=== PATIENT | female | born 1945 | race Caucasian/White ===

== ENCOUNTER 2016-05-04 10:23 | Inpatient (IN) ==
--- NOTE | 2016-05-04 10:33 | Emergency Department Note ---
Disposition Clinical Impression: Stroke Disposition: Admitted As Inpatient Condition: Fair General Adult HPI - General Chief complaint: ED Neuro Symptoms/Deficit Stated complaint: expressive aphasia Time Seen by Provider: 05/04/16 10:27 Nursing Notes Reviewed: Yes Vital Signs Reviewed: Yes - Related Data Home Medications Medication Instructions Recorded Confirmed Aspirin Enteric Coated [Aspirin EC] 81 mg PO DAILY 12/16/15 05/04/16 Atenolol 100 mg PO DAILY 12/16/15 05/04/16 Diltiazem HCl [Diltiazem ER] 120 mg PO DAILY 12/16/15 05/04/16 Ergocalciferol (VITAMIN D2) 50,000 unit PO QWEEK 12/16/15 05/04/16 [Vitamin D2 (50,000 UNIT)] Fluticasone Propionate Nasal 1 spray NS DAILY 12/16/15 05/04/16 [Flonase] Insulin Glargine,Hum.rec.anlog 25 unit SQ QAM 12/16/15 05/04/16 [Lantus Solostar] Insulin Glargine,Hum.rec.anlog 30 unit SQ QPM 12/16/15 05/04/16 [Lantus Solostar] Losartan Potassium [Cozaar] 100 mg PO DAILY 12/16/15 05/04/16 Pantoprazole Sodium [Protonix] 40 mg PO BID 12/16/15 05/04/16 Pravastatin Sodium [Pravachol] 40 mg PO DAILY 12/16/15 05/04/16 Ranitidine HCl [Heartburn Relief] 150 mg PO BID 12/16/15 05/04/16 Spironolactone [Aldactone] 25 mg PO DAILY 12/16/15 05/04/16 Sucralfate [Carafate] 1 gm PO QIDAC 12/16/15 05/04/16 HYDROcodone/Acet 5/325 mg [[place] 1 tab PO Q8H PRN 05/04/16 05/04/16 5-325 mg] Levothyroxine [Synthroid] 100 mcg PO DAILY 05/04/16 05/04/16 Allergies Allergy/AdvReac Type Severity Reaction Status Date / Time codeine Allergy Palpitation Verified 12/16/15 07:49 s Penicillins Allergy Rash Verified 12/16/15 07:49 Sulfa (Sulfonamide Allergy Anaphylaxis Verified 12/16/15 07:49 Antibiotics) Past Medical History - Past Medical History Medical history: Reports: diabetes, GERD, hypertension Surgical history: Reports: cholecystectomy, hysterectomy Psychiatric history: Reports: depression - Social History Smoking Status: Never smoker Alcohol use: Reports: none Drug use: Reports: none Course Vital Signs Temperature 97.6 F 05/04/16 10:25 Pulse Rate 66 05/04/16 10:25 Respiratory Rate 16 05/04/16 10:25 Blood Pressure 184/91 05/04/16 10:25 O2 Sat by Pulse Oximetry 95 05/04/16 10:25 Temperature 97.6 F 05/04/16 12:46 Pulse Rate 58 05/04/16 13:09 Respiratory Rate 18 05/04/16 13:09 Blood Pressure 129/84 05/04/16 13:09 O2 Sat by Pulse Oximetry 96 05/04/16 13:09 Oxygen Delivery Oxygen Delivery Room Air Medical Decision Making - MDM Narrative Medical decision making narrative: I examined this patient and my medical decision-making was reviewed with the [address] [employer] RO[address] DRIVER/PA/Advanced Practice Nurse/Resident Physician. I agree with the documented findings, disposition and treatment plan as described except to the extent set forth below. Value in this patient with Dr. Villela on arrival by EMS. Patient had a last known well 10 PM last evening, found on the floor around 0645. There went to the primary care physician and she has been having some weakness and difficulty speaking. She has expressive aphasia here some neglect of the right side lumbar drooping right side her face has some some difficulty following commands but does not have any overt weakness. A CT of her head check labs will speak to neurology. She is outside the window for TPA and a stroke alert. 1140: Labs are back. CT is back looks like she has got a nonacute infarct. Dr. rogers and then we will admit her through the hospitalist service here. Family is in agreement with plan. Patient to remain unchanged. Impression is acute aphasia with nonacute TIA versus CVA. Critical care time exclusive A separately billable procedures is 50 minutes. 1154 hrs.: Speaking with neurology at this time. I do not want to give her aspirin since she has the aphasia. And cannot be cleared from a swallowing standpoint. We will bring her into the hospital to neurology consulting. - Lab Data Result diagrams: 05/04/16 10:50 05/04/16 10:50 Lab Results 05/04/16 05/04/16 05/04/16 Range/Units 10:39 10:50 10:50 WBC 6.9 (4.3-11.1) K/mcL RBC 5.02 H (3.82-4.97) M/mcL Hgb 14.9 (11.5-15.4) g/dL Hct 46.7 H (35.3-44.9) % MCV 93.0 (83.0-100.0) fL MCH 29.7 (28.0-33.3) pg MCHC 31.9 (31.6-35.5) g/dL RDW 16.2 H (11.5-14.5) % Plt Count 286 (140-400) K/mcL MPV 10.9 (9.4-12.4) fL Immature Gran % 0.3 (0-4) % Seg Neutrophils % 58.0 % Lymphocytes % 31.1 % Monocytes % 8.6 % Eosinophils % 1.0 % Basophils % 1.0 % Neutrophils # 4.0 (1.6-8.9) K/mcL Lymphocytes # 2.1 (0.6-4.6) K/mcL Monocytes # 0.6 (0.0-1.3) K/mcL Eosinophils # 0.1 (0.0-0.6) K/mcL Basophils # 0.1 (0.0-0.2) K/mcL Nucleated RBCs/100 WBC 0.3 H (0) /100 WBC PT 11.5 (9.4-12.1) Seconds INR 1.1 APTT 28.1 (26.0-36.0) Seconds Sodium (136-145) mEq/L Potassium (3.5-4.5) mEq/L Chloride (98-109) mEq/L Carbon Dioxide (19-29) mEq/L BUN (7-20) mg/dL Creatinine (0.57-1.11) mg/dL Est GFR ( Amer) (> 60) Est GFR (Non-Af Amer) (> 60) BUN/Creatinine Ratio (6-26) Glucose (70-99) mg/dL POC Glucose 99 H (58-89) Calculated Osmolality (280-300) Calcium (8.6-10.8) mg/dL Total Bilirubin (0.2-1.2) mg/dL AST (5-34) Units/L ALT (0-55) Units/L Alkaline Phosphatase (38-126) Units/L Troponin I (0-0.03) ng/mL Serum Total Protein (6.0-8.3) g/dL Albumin (3.5-5.0) g/dL Globulin (2.4-3.5) g/dL Albumin/Globulin Ratio (1.1-2.2) 05/04/16 05/04/16 Range/Units 10:50 10:50 WBC (4.3-11.1) K/mcL RBC (3.82-4.97) M/mcL Hgb (11.5-15.4) g/dL Hct (35.3-44.9) % MCV (83.0-100.0) fL MCH (28.0-33.3) pg MCHC (31.6-35.5) g/dL RDW (11.5-14.5) % Plt Count (140-400) K/mcL MPV (9.4-12.4) fL Immature Gran % (0-4) % Seg Neutrophils % % Lymphocytes % % Monocytes % % Eosinophils % % Basophils % % Neutrophils # (1.6-8.9) K/mcL Lymphocytes # (0.6-4.6) K/mcL Monocytes # (0.0-1.3) K/mcL Eosinophils # (0.0-0.6) K/mcL Basophils # (0.0-0.2) K/mcL Nucleated RBCs/100 WBC (0) /100 WBC PT (9.4-12.1) Seconds INR APTT (26.0-36.0) Seconds Sodium 139 (136-145) mEq/L Potassium 4.4 (3.5-4.5) mEq/L Chloride 108 (98-109) mEq/L Carbon Dioxide 21 (19-29) mEq/L BUN 31 H (7-20) mg/dL Creatinine 2.04 H (0.57-1.11) mg/dL Est GFR ( Amer) 29 L (> 60) Est GFR (Non-Af Amer) 24 L (> 60) BUN/Creatinine Ratio 15 (6-26) Glucose 106 H (70-99) mg/dL POC Glucose (58-89) Calculated Osmolality 295 (280-300) Calcium 9.8 (8.6-10.8) mg/dL Total Bilirubin 0.5 (0.2-1.2) mg/dL AST 20 (5-34) Units/L ALT 10 (0-55) Units/L Alkaline Phosphatase 65 (38-126) Units/L Troponin I 0.01 (0-0.03) ng/mL Serum Total Protein 8.7 H (6.0-8.3) g/dL Albumin 3.3 L (3.5-5.0) g/dL Globulin 5.4 H (2.4-3.5) g/dL Albumin/Globulin Ratio 0.6 L (1.1-2.2)
--- NOTE | 2016-05-04 10:40 | Emergency Department Note ---
Disposition Clinical Impression: Stroke Disposition: Admitted As Inpatient Condition: Fair Referrals: Unassigned,Provider [Non-Partnered Physician] - Forms: ED Satisfaction Letter Time of Disposition: 12:34 General Adult HPI - General Chief complaint: ED Neuro Symptoms/Deficit Stated complaint: expressive aphasia Time Seen by Provider: 05/04/16 10:27 Nursing Notes Reviewed: Yes Vital Signs Reviewed: Yes - History of Present Illness HPI Narrative: Female patient with history of atrial fibrillation has a last known well at 10: 00 last night when she went to bed. This morning the woke up and found her in the floor. He states she was unable to speak at that time. He then took her to her primary care doctor who then sent her to the emergency department. - Related Data Home Medications Medication Instructions Recorded Confirmed Aspirin Enteric Coated [Aspirin EC] 81 mg PO DAILY 12/16/15 12/16/15 Atenolol 100 mg PO DAILY 12/16/15 12/16/15 Diltiazem HCl [Diltiazem ER] 120 mg PO DAILY 12/16/15 12/16/15 Ergocalciferol (VITAMIN D2) 50,000 unit PO QWEEK 12/16/15 12/16/15 [Vitamin D2 (50,000 UNIT)] Fluticasone Propionate Nasal 1 spray NS DAILY 12/16/15 12/16/15 [Flonase] Insulin Glargine,Hum.rec.anlog 25 unit SQ QAM 12/16/15 12/16/15 [Lantus Solostar] Insulin Glargine,Hum.rec.anlog 30 unit SQ QPM 12/16/15 12/16/15 [Lantus Solostar] Losartan Potassium [Cozaar] 100 mg PO DAILY 12/16/15 12/16/15 Pantoprazole Sodium [Protonix] 40 mg PO BID 12/16/15 12/16/15 Pravastatin Sodium [Pravachol] 40 mg PO DAILY 12/16/15 12/16/15 Ranitidine HCl [Heartburn Relief] 150 mg PO BID 12/16/15 12/16/15 Spironolactone [Aldactone] 25 mg PO DAILY 12/16/15 12/16/15 Sucralfate [Carafate] 1 gm PO QIDAC 12/16/15 12/16/15 HYDROcodone/Acet 5/325 mg [[place] 1 tab PO Q8H PRN 05/04/16 05/04/16 5-325 mg] Levothyroxine [Synthroid] 100 mcg PO DAILY 05/04/16 05/04/16 Allergies Allergy/AdvReac Type Severity Reaction Status Date / Time codeine Allergy Palpitation Verified 12/16/15 07:49 s Penicillins Allergy Rash Verified 12/16/15 07:49 Sulfa (Sulfonamide Allergy Anaphylaxis Verified 12/16/15 07:49 Antibiotics) Review of Systems: advises patient recently had a cough. No history of stroke he is aware of. Limitations: ROS unobtainable due to patients medical condition Past Medical History - Past Medical History Medical history: Reports: diabetes, GERD, hypertension Surgical history: Reports: cholecystectomy, hysterectomy Psychiatric history: Reports: depression - Social History Smoking Status: Never smoker Alcohol use: Reports: none Drug use: Reports: none Physical Exam - General Limitations: other (A phasic. She does answer questions with nodding her head yes and no.) General appearance: alert, other (Not Able to track with eyes to the right.) - Head Head exam: atraumatic, normocephalic, normal inspection - Eye Eye exam: Present: normal appearance, PERRL. Absent: scleral icterus - ENT ENT exam: mucous membranes moist, other (Decrease in right sided nasolabial folds. Does have equal creases in her forehead. Drooling noted out of the right side of her mouth. Equal eyelid strength.) - Neck Neck exam: Present: normal inspection, full ROM, trachea midline. Absent: tenderness, meningismus, lymphadenopathy, thyromegaly - Chest Chest inspection: Present: normal inspection, symmetric chest wall rise. Absent : tenderness - Respiratory Respiratory exam: Present: normal lung sounds bilaterally. Absent: respiratory distress - Cardiovascular Cardiovascular exam: Present: regular rate, normal rhythm, normal heart sounds - Abdominal Exam Abdominal exam: Present: soft, Non-Tender, normal bowel sounds. Absent: tenderness, distention, guarding, rebound, rigidity - Extremities Exam Extremities exam: Present: normal inspection, full ROM, normal capillary refill , other (Full and equal motor strength in all 4 extremities.). Absent: tenderness, pedal edema - Back Exam Back exam: Present: normal inspection, full ROM. Absent: tenderness, CVA tenderness (R), CVA tenderness (L) - Neurological Exam Neurological exam: Present: alert - Psychiatric Psychiatric exam: Present: normal affect - Skin Skin exam: Present: warm, dry, intact, normal color Course Course Narrative: Ashley 1-year-old patient with a history of irregular heartbeat with a last known well with 10 PM last night was found in the floor this morning by her . He states that she could not speak. He then took her to their primary care physician who then sent her to the emergency department. She has expressive aphasia. She is able to communicate by shaking her head yes and no. She is rightward gaze deficit. She can follow most commands. She is unable to protrude her tongue. She does have decrease in her right nasolabial fold. She has equal strength of her eyelids. She has full range of motion and normal strength in all 4 extremities. Her lung sounds are clear. The reports the patient has complained of a cough recently. 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 She did have an elevated creatinine. We will give her a liter of fluid. She has an unknown downtime in the floor. This could possibly be due to rhabdomylysis. Over the states that she does see a kidney doctor for decreased renal function. Patient appears to have new onset ischemic stroke. We will admit for further evaluation. has made aware of this patient has also been made aware of this. - Consultations Consultation #1: Dr Guerra admitting Pt. Time: 12:17 Vital Signs Temperature 97.6 F 05/04/16 10:25 Pulse Rate 66 05/04/16 10:25 Respiratory Rate 16 05/04/16 10:25 Blood Pressure 184/91 05/04/16 10:25 O2 Sat by Pulse Oximetry 95 05/04/16 10:25 Temperature 97.6 F 05/04/16 10:25 Pulse Rate 64 05/04/16 11:18 Respiratory Rate 16 05/04/16 11:18 Blood Pressure 171/88 05/04/16 11:18 O2 Sat by Pulse Oximetry 95 05/04/16 11:18 Oxygen Delivery Oxygen Delivery Nasal Cannula Medical Decision Making - Medical Records Medical records reviewed: Yes I reviewed the patient's medical records. - Lab Data Lab results reviewed: Yes I reviewed the patient's lab results. Result diagrams: 05/04/16 10:50 05/04/16 10:50 Lab Results 05/04/16 05/04/16 05/04/16 Range/Units 10:39 10:50 10:50 WBC 6.9 (4.3-11.1) K/mcL RBC 5.02 H (3.82-4.97) M/mcL Hgb 14.9 (11.5-15.4) g/dL Hct 46.7 H (35.3-44.9) % MCV 93.0 (83.0-100.0) fL MCH 29.7 (28.0-33.3) pg MCHC 31.9 (31.6-35.5) g/dL RDW 16.2 H (11.5-14.5) % Plt Count 286 (140-400) K/mcL MPV 10.9 (9.4-12.4) fL Immature Gran % 0.3 (0-4) % Seg Neutrophils % 58.0 % Lymphocytes % 31.1 % Monocytes % 8.6 % Eosinophils % 1.0 % Basophils % 1.0 % Neutrophils # 4.0 (1.6-8.9) K/mcL Lymphocytes # 2.1 (0.6-4.6) K/mcL Monocytes # 0.6 (0.0-1.3) K/mcL Eosinophils # 0.1 (0.0-0.6) K/mcL Basophils # 0.1 (0.0-0.2) K/mcL Nucleated RBCs/100 WBC 0.3 H (0) /100 WBC PT 11.5 (9.4-12.1) Seconds INR 1.1 APTT 28.1 (26.0-36.0) Seconds Sodium (136-145) mEq/L Potassium (3.5-4.5) mEq/L Chloride (98-109) mEq/L Carbon Dioxide (19-29) mEq/L BUN (7-20) mg/dL Creatinine (0.57-1.11) mg/dL Est GFR ( Amer) (> 60) Est GFR (Non-Af Amer) (> 60) BUN/Creatinine Ratio (6-26) Glucose (70-99) mg/dL POC Glucose 99 H (58-89) Calculated Osmolality (280-300) Calcium (8.6-10.8) mg/dL Total Bilirubin (0.2-1.2) mg/dL AST (5-34) Units/L ALT (0-55) Units/L Alkaline Phosphatase (38-126) Units/L Troponin I (0-0.03) ng/mL Serum Total Protein (6.0-8.3) g/dL Albumin (3.5-5.0) g/dL Globulin (2.4-3.5) g/dL Albumin/Globulin Ratio (1.1-2.2) 05/04/16 05/04/16 Range/Units 10:50 10:50 WBC (4.3-11.1) K/mcL RBC (3.82-4.97) M/mcL Hgb (11.5-15.4) g/dL Hct (35.3-44.9) % MCV (83.0-100.0) fL MCH (28.0-33.3) pg MCHC (31.6-35.5) g/dL RDW (11.5-14.5) % Plt Count (140-400) K/mcL MPV (9.4-12.4) fL Immature Gran % (0-4) % Seg Neutrophils % % Lymphocytes % % Monocytes % % Eosinophils % % Basophils % % Neutrophils # (1.6-8.9) K/mcL Lymphocytes # (0.6-4.6) K/mcL Monocytes # (0.0-1.3) K/mcL Eosinophils # (0.0-0.6) K/mcL Basophils # (0.0-0.2) K/mcL Nucleated RBCs/100 WBC (0) /100 WBC PT (9.4-12.1) Seconds INR APTT (26.0-36.0) Seconds Sodium 139 (136-145) mEq/L Potassium 4.4 (3.5-4.5) mEq/L Chloride 108 (98-109) mEq/L Carbon Dioxide 21 (19-29) mEq/L BUN 31 H (7-20) mg/dL Creatinine 2.04 H (0.57-1.11) mg/dL Est GFR ( Amer) 29 L (> 60) Est GFR (Non-Af Amer) 24 L (> 60) BUN/Creatinine Ratio 15 (6-26) Glucose 106 H (70-99) mg/dL POC Glucose (58-89) Calculated Osmolality 295 (280-300) Calcium 9.8 (8.6-10.8) mg/dL Total Bilirubin 0.5 (0.2-1.2) mg/dL AST 20 (5-34) Units/L ALT 10 (0-55) Units/L Alkaline Phosphatase 65 (38-126) Units/L Troponin I 0.01 (0-0.03) ng/mL Serum Total Protein 8.7 H (6.0-8.3) g/dL Albumin 3.3 L (3.5-5.0) g/dL Globulin 5.4 H (2.4-3.5) g/dL Albumin/Globulin Ratio 0.6 L (1.1-2.2) - EKG Data EKG #1 EKG results narrative: Atrial flutter at a rate of 60. Occasional PVC. No sign of acute ischemia. No signs of acute ischemia. TX interval is 202 QRS duration is 97 QT is 389 QTc is 390. Prior EKG dated 06/25/2011 was a sinus bradycardia with a first- degree AV block. He did not appear to be in atrial flutter at that time. NIH Stroke Scale - Level of Consciousness LOC: Alert - LOC Questions LOC Questions: Answers both incorrectly - LOC Commands LOC Commands: Performs both incorrectly - Best Gaze Best Gaze: Partial gaze palsy - Visual Visual: No visual loss - Facial Palsy Facial Palsy: Minor asymmetry on smiling, flattened nasolabial fold - Motor Arms Motor Arm-Left: No drift for 10 seconds Motor Arm-Right: No drift for 10 seconds - Motor Legs Motor Leg-Left: No drift for 5 seconds Motor Leg-Right: No drift for 5 seconds - Limb Ataxia Limb Ataxia: Normal, No Ataxia - Sensory Sensory: Normal - Best Language Best Language: Mute, no usable speech - Dysarthria Dysarthria: Severe, slurred speech unintelligible or mute - Extinction and Inattention Extinction and Inattention: Normal - NIHSS Total Score NIHSS Total Score: 11
[2016-05-04 11:07] LABS: Basophils # 0.1 K/mcL (0.0-0.2); Eosinophils # 0.1 K/mcL (0.0-0.6); Hematocrit 46.7 % (35.3-44.9); Hemoglobin 14.9 g/dL (11.5-15.4); Immature Granulocytes % 0.3 % (0-4); Lymphocytes # 2.1 K/mcL (0.6-4.6); Lymphocytes % 31.1 %; Mean Corpuscular HGB Conc 31.9 g/dL (31.6-35.5); Mean Corpuscular Hemoglobin 29.7 pg (28.0-33.3); Mean Platelet Volume 10.9 fL (9.4-12.4); Monocytes # 0.6 K/mcL (0.0-1.3); Monocytes % 8.6 %; Nucleated Red Blood Cells 0.3 /100 WBC (0); Platelet Count 286 K/mcL (140-400); Red Blood Count 5.02 M/mcL (3.82-4.97); Red Cell Distribution Width 16.2 % (11.5-14.5)
[2016-05-04 11:19] LABS: INR 1.1; Prothrombin Time 11.5 Seconds (9.4-12.1)
[2016-05-04 11:21] LABS: Albumin 3.3 g/dL (3.5-5.0); Albumin/Globulin Ratio 0.6 (1.1-2.2); Bilirubin,Total 0.5 mg/dL (0.2-1.2); Calcium 9.8 mg/dL (8.6-10.8); Globulin 5.4 g/dL (2.4-3.5); Potassium 4.4 mEq/L (3.5-4.5); Total Protein 8.7 g/dL (6.0-8.3)
[2016-05-04 11:22] LABS: Activated Partial Thrombo Time 28.1 Seconds (26.0-36.0)
[2016-05-04] MEDS ORDERED: 0.9 % Sodium Chloride 1,000 ML IVC ONE (11:34)
[2016-05-04] MEDS ORDERED: Naloxone 0.4 MG/ML INJ IVP PRN (13:48)
[2016-05-04] MEDS ORDERED: Ondansetron 4 MG/2 ML VIAL IVP PRN (13:48)
[2016-05-04] MEDS ORDERED: Acetaminophen 325 MG TABLET PO PRN (13:48)
--- NOTE | 2016-05-04 14:07 | Internal Med History&Physical ---
Addendum entered and electronically signed by Rosaura Roy CNP 05/04/16 15: 41: (8) type 2 diabetes Mellitus Check blood sugars ACHS Basal dose of insulin detemir 16u HS Sliding scale correction dose insulin TID with meals Original Note: <Rosaura Roy - Last Filed: 05/04/16 15:13> Date of Encounter: 05/04/16 Time of Encounter: 14:04 Assessment and Plan (1) CVA (cerebral vascular accident) Current visit: Yes Status: Acute Patient woke up unable to speak and with right sided facial droop CT head showed old lacunar infarct Neuro consulted MRI of head and brain ordered echocardiogram bilateral carotid duplex Speech therapy consult 325mg of aspirin today PT/OT consult SW consult Qualifiers: CVA mechanism: thrombosis Precerebral and cerebral artery: unspecified cerebral artery Qualified Code(s): I63.30 - Cerebral infarction due to thrombosis of unspecified cerebral artery (2) Atrial fibrillation and flutter Current visit: Yes Status: Acute Patient's denies any known history of arrhythmia, this appears to be new onset. 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 Soft diet recommended. (4) Hypertension Current visit: Yes Status: Acute continue home doses of atenolol, diltiazem, spironolactone. Hold losartan for SHABANA. Qualifiers: Hypertension type: essential hypertension Qualified Code(s): I10 - Essential (primary) hypertension (5) [id number] kidney injury Current visit: Yes Status: Acute Creatinine up slightly to 2.04 from baseline of 1.75. She was given a fluid bolus in the ED. Will check BMP tomorrow. (6) Hyperlipidemia Current visit: Yes Status: Acute will get fasting lipid panel in AM. Continue home dose of pravastatin. Qualifiers: Hyperlipidemia type: pure hypercholesterolemia Qualified Code(s): E78.00 - Pure hypercholesterolemia, unspecified; E78.0 - Pure hypercholesterolemia (7) DVT prophylaxis Current visit: Yes Status: Acute up to chair with assist anti-embolic stockings 5,000u heparin SQ BID Internal Medicine - H&P: HPI Chief complaint: unable to speak Admitted From: Home Plans for Post Hospital Care: Home History of present illness: Ms. Queen is a 71 year old female with history of HTN, type 2 diabetes and hyperlipidemia who was brought in to the ED by her after he found her on the floor next to her bed in the morning and unable to speak. She was last known well at 10pm last night, and therefore not a candidate for tPA. She is able to nod yes and no to answer questions. Work up in the ED was significant for CT scan showing old lacunar infarct. She was also found to be in aflutter on her ekg. She has a history of CKD, but her creatinine was elevated to 2.04 above her baseline of 1.75. CXR revealed nonspecific multifocal patchy airspace opacities. Neuro was called by the ED. Aspirin was not given due to concern for dysphagia. On exam, she is alert and can answer yes or no questions with nods of her head. She has a right sided facial droop, and is unable to stick out her tongue or puff out her cheeks. She appears frustrated with her inability to speak. She has equal strength in BUE and BLE, and no pronator drift. Lungs sound clear except for some superior expiratory wheezes. Heart has irregular rhythm and appears to be in Afib on the monitor. Past Med Surg Social Fam HX - Past Medical History Medical history: diabetes, GERD, hyperlipidemia, hypertension, renal disease, thyroid disease Psychiatric history: depression - Past Surgical History Surgical History: cholecystectomy, hysterectomy, orthopedic, other (hip replacement x4, bilateral knee replacement, bilateral rotator cuff) - Social History Smoking Status: Never smoker Alcohol use: none Drug use: none Internal Medicine - H&P: Meds Aspirin Enteric Coated [Aspirin EC] 81 mg PO DAILY 12/16/15 [History] Atenolol 100 mg PO DAILY 12/16/15 [History] Diltiazem HCl [Diltiazem ER] 120 mg PO DAILY 12/16/15 [History] Ergocalciferol (VITAMIN D2) [Vitamin D2 (50,000 UNIT)] 50,000 unit PO QWEEK 02/20 [History] Fluticasone Propionate Nasal [Flonase] 1 spray NS DAILY 12/16/15 [History] Insulin Glargine,Hum.rec.anlog [Lantus Solostar] 25 unit SQ QAM 12/16/15 [ History] Insulin Glargine,Hum.rec.anlog [Lantus Solostar] 30 unit SQ QPM 12/16/15 [ History] Losartan Potassium [Cozaar] 100 mg PO DAILY 12/16/15 [History] Pantoprazole Sodium [Protonix] 40 mg PO BID 12/16/15 [History] Pravastatin Sodium [Pravachol] 40 mg PO DAILY 12/16/15 [History] Ranitidine HCl [Heartburn Relief] 150 mg PO BID 12/16/15 [History] Spironolactone [Aldactone] 25 mg PO DAILY 12/16/15 [History] Sucralfate [Carafate] 1 gm PO QIDAC 12/16/15 [History] HYDROcodone/Acet 5/325 mg [[place] 5-325 mg] 1 tab PO Q8H PRN 05/04/16 [History] Levothyroxine [Synthroid] 100 mcg PO DAILY 05/04/16 [History] Allergies codeine Allergy (Verified 12/16/15 07:49) Palpitations Penicillins Allergy (Verified 12/16/15 07:49) Rash Sulfa (Sulfonamide Antibiotics) Allergy (Verified 12/16/15 07:49) Anaphylaxis ROS unobtainable: other All Systems PM: A 10-system review of systems was performed and is negative for pertinent findings except as documented above in the HPI. Review of systems: Limited by her inability to speak. She was able to respond to yes and no questions. - Constitutional Constitutional: no fever(s) - EENT Eyes: no blurry vision, no change in vision - Cardiovascular Cardiovascular ROS IM: no chest pain, no dyspnea, no dyspnea on exertion, no lightheadedness, no palpitations - Respiratory Respiratory: cough, no dyspnea, no dyspnea on exertion - Gastrointestinal Gastrointestinal: no change in bowel habits - Genitourinary Genitourinary: no dysuria, no hematuria - Musculoskeletal Musculoskeletal ROS IM: no numbness, no tingling - Integumentary Integumentary IM: no rash, no unusual bruising - Neurological Neurological ROS: abnormal speech, focal weakness (right sided), no confusion, no dizziness, no loss of vision, no numbness, no tingling - Constitutional Vitals: Temp Pulse Resp BP Pulse Ox 97.6 F 58 18 129/84 96 05/04/16 12:46 05/04/16 13:09 05/04/16 13:09 05/04/16 13:09 05/04/16 13:27 General appearance: Present: A&O X 3, no acute distress - Head Head exam: Present: atraumatic, normocephalic - Eye Eye exam: Present: PERRL, conjuntiva pink, sclera anicteric Additional comments: unable to track right - Neck Neck exam general surgery: Present: supple, trachea midline. Absent: lymphadenopathy - Respiratory Respiratory exam: Present: wheezes. Absent: accessory muscle use, rales, rhonchi - Cardiovascular Cardiovascular exam: Present: irregular rhythm. Absent: diastolic murmur, systolic murmur - GI/Abdominal GI/Abdominal exam: Present: normal bowel sounds, soft, no peritoneal signs. Absent: distended, tenderness - Extremities Exam Extremities exam: Present: warm, radial pulses palpable and symetrical. Absent : calf tenderness, cyanotic, pedal edema - Neurological Exam Neurological exam: Present: alert, facial droop, speech deficit. Absent: CN II- XII intact, pronater drift - Expanded Neurological Exam Neurological exam expanded: Present: expressive aphasia Speech: Present: expressive aphasia, slurred Cranial Nerves: EOM's intact PM: Abnormal Right, tongue deviation PM: Abnormal Right (unable to stick out tongue) Sensory exam: LE 2 point discrimination: Normal, lower extremity light touch: Normal, UE 2 point discrimination: Normal, upper extremity light touch: Normal Neuro motor strength exam: LUE: 4, RUE: 4, LLE: 4, RLE: 4 Coma Scale Eye Opening: Spontaneous Coma Scale Motor Response: Obeys Commands Coma Scale Verbal Response: Oriented Coma Scale Total: 15 - Skin Skin exam: Present: dry, intact Internal Med - H&P Results - Labs CBC & Chem 7: 05/04/16 10:50 05/04/16 10:50 <Monroe Guerra R - Last Filed: 05/04/16 16:41> Date of Encounter: 05/04/16 Internal Medicine - H&P: HPI History of present illness: Ms. Queen is a 71 year old female All Systems PM: A 10-system review of systems was performed and is negative for pertinent findings except as documented above in the HPI. - Constitutional Vitals: Temp Pulse Resp BP Pulse Ox 97.6 F 68 20 179/79 97 05/04/16 12:46 05/04/16 15:00 05/04/16 15:00 05/04/16 15:00 05/04/16 15:00 Internal Med - H&P Results - Labs CBC & Chem 7: 05/04/16 10:50 05/04/16 10:50 - Attending Attestation I have seen and examined this patient independently. I have discussed the case with the nurse practitioner, Rosaura Roy . I agree with the data gathering in the HPI, physical examination findings, assessment and plan as documented by our [employer]. Patient will continue with close monitoring in the tele unit. MRI today. Echo ordered. Hold chronotropic negative meds, hold spironolacone ( unclear why she is on it). Cardiology and neurology evaluation. The plan of care was discussed in detail with the patient and her , she expressed understanding.
[2016-05-04] MEDS ORDERED: Aspirin 325 MG TABLET PO ONE (14:33)
[2016-05-04] MEDS ORDERED: Dextrose Gel 15 GM PO PRN ×2 (14:49)
[2016-05-04] MEDS ORDERED: D5% in Water 1,000 ML IV PRN (14:49)
[2016-05-04] MEDS ORDERED: *HR* Dextrose 50 % in Water (Syg) 50 ML SYRINGE IVP PRN (14:49)
[2016-05-04 15:34] LABS: Hemoglobin A1C 7.6 %
[2016-05-04] MEDS ORDERED: *HR* Heparin 5,000 UNIT/ML VIAL IVP PRN ×2 (17:20)
[2016-05-04] MEDS ORDERED: *HR* Heparin 5,000 UNIT/ML VIAL IVP ONE (17:20)
--- NOTE | 2016-05-04 17:29 | Neurology - Consult Note ---
Date of Encounter: 05/04/16 Time of Encounter: 17:24 Assessment and Plan (1) Stroke Current Visit: Yes Status: Acute 71 year old woman with DM, HTN who developed acute onset of aphasia, right facial droop in light of new onset of atrial fibrillation. Essentially mute therefore likely involving the left dominent motor strip involving speech center. Patient has no motor weakness and no mental status changes therefore the size of stroke can not be large and it has to involve cortical region to cause aphasia. CHADs2 score now would be 4-5 therefore would be a candidate for termite treater anticoagulation. Due to CT of head not showing any bleed and physical examination precluding a large stroke, will recommend start anticoagulation therapy without delay. Complete full stroke work up including echocardiography, carotid artery duplex study, statin therapy. Speech therapy. Speech likely will improve as most aphasic patients do. Please continue medical and supportive care Qualifiers: CVA mechanism: embolism Precerebral and cerebral artery: unspecified cerebral artery Qualified Code(s): I63.40 - Cerebral infarction due to embolism of unspecified cerebral artery History of Present Illness Chief complaint: aphasia HPI: Ms. Queen is a 71 year old female with PMH significant for HTN, DM, CKD, hyperlipidemia, who developed acute onset of aphasia and right facial droop this morning. Patient was found lying on the floor by her , unable to talk. Per no significant weakness was noted by him. In the ER, she was found to have right facial droop however. Determined not to be a candidate for tPA thrombolysis therapy due to unknown onset of symptoms. Admitted to medical floor for further evaluation. Was found to have atrial flutter/fibrillation per ER physician. This appears to be something new, per . Currently, the patient is still aphasic, almost mute, but she does not appear to be in any significant discomforts. Able to move all extremities and able to maintain posture and then smiles. During interview, she could one time almost say a whole sentence, although not of any sense. Past Med Surg Social Fam HX - Past Medical History Medical history: diabetes, GERD, hyperlipidemia, hypertension, renal disease, thyroid disease Psychiatric history: depression - Past Surgical History Surgical History: cholecystectomy, hysterectomy, orthopedic, other (hip replacement x4, bilateral knee replacement, bilateral rotator cuff) - Social History Smoking Status: Never smoker Alcohol use: none Drug use: none Medications and Allergies Aspirin Enteric Coated [Aspirin EC] 81 mg PO DAILY 12/16/15 [History] Atenolol 100 mg PO DAILY 12/16/15 [History] Diltiazem HCl [Diltiazem ER] 120 mg PO DAILY 12/16/15 [History] Ergocalciferol (VITAMIN D2) [Vitamin D2 (50,000 UNIT)] 50,000 unit PO QWEEK 02/20 [History] Fluticasone Propionate Nasal [Flonase] 1 spray NS DAILY 12/16/15 [History] Insulin Glargine,Hum.rec.anlog [Lantus Solostar] 25 unit SQ QAM 12/16/15 [ History] Insulin Glargine,Hum.rec.anlog [Lantus Solostar] 30 unit SQ QPM 12/16/15 [ History] Losartan Potassium [Cozaar] 100 mg PO DAILY 12/16/15 [History] Pantoprazole Sodium [Protonix] 40 mg PO BID 12/16/15 [History] Pravastatin Sodium [Pravachol] 40 mg PO DAILY 12/16/15 [History] Ranitidine HCl [Heartburn Relief] 150 mg PO BID 12/16/15 [History] Spironolactone [Aldactone] 25 mg PO DAILY 12/16/15 [History] Sucralfate [Carafate] 1 gm PO QIDAC 12/16/15 [History] HYDROcodone/Acet 5/325 mg [[place] 5-325 mg] 1 tab PO Q8H PRN 05/04/16 [History] Levothyroxine [Synthroid] 100 mcg PO DAILY 05/04/16 [History] Allergies codeine Allergy (Verified 12/16/15 07:49) Palpitations Penicillins Allergy (Verified 12/16/15 07:49) Rash Sulfa (Sulfonamide Antibiotics) Allergy (Verified 12/16/15 07:49) Anaphylaxis All Systems: A 10-system review of systems was performed and is negative for pertinent findings except as documented above in the HPI. Physical Examination - Vital Signs Vital Signs: Initial Vital Signs Temp Pulse Resp BP Pulse Ox 97.6 F 66 16 184/91 95 05/04/16 10:25 05/04/16 10:25 05/04/16 10:25 05/04/16 10:25 05/04/16 10:25 - Constitutional General appearance: comfortable - Neurologic Sensorimotor examination: other (Unable to assess due to aphasia) Detailed motor examination: other (Move all extremities, strenght at least 4+/5 bilaerally. Unable to check pronator drift though) Reflexes: Biceps: 1+, Triceps: 1+, Brachioradialis: 1+, Patella: 1+, Achilles: 1 + Mental Status Examination: awake, alert, no agnosia (Aphasic, and essentially mute) Cranial nerve examination: PERRL, EOMI, visual kenny intact (Unable to assess due to aphasia), sensory to face intact (Unable to assess), mastication intact, no facial asymmetry is present (Right facial droop noted), hearing is intact symmetrically, soft palate elevates bilaterally upon phonation (Unable to assess ), gag reflex intact (Unable to assess), flexes SCM and trapezius muscles symmetrically with full power, tongue protrudes midline (Unable to assess) Results - Laboratory Findings CBC and BMP: 05/04/16 10:50 05/04/16 10:50 Abnormal lab findings: Abnormal lab results RBC 5.02 M/mcL (3.82-4.97) H 05/04/16 10:50 Hct 46.7 % (35.3-44.9) H 05/04/16 10:50 RDW 16.2 % (11.5-14.5) H 05/04/16 10:50 Nucleated RBCs/100 WBC 0.3 /100 WBC (0) H 05/04/16 10:50 BUN 31 mg/dL (7-20) H 05/04/16 10:50 Creatinine 2.04 mg/dL (0.57-1.11) H 05/04/16 10:50 Est GFR ( Amer) 29 (> 60) L 05/04/16 10:50 Est GFR (Non-Af Amer) 24 (> 60) L 05/04/16 10:50 Glucose 106 mg/dL (70-99) H 05/04/16 10:50 POC Glucose 99 (58-89) H 05/04/16 10:39 Hemoglobin A1c 7.6 % (-5.6) H 05/04/16 10:50 Serum Total Protein 8.7 g/dL (6.0-8.3) H 05/04/16 10:50 Albumin 3.3 g/dL (3.5-5.0) L 05/04/16 10:50 Globulin 5.4 g/dL (2.4-3.5) H 05/04/16 10:50 Albumin/Globulin Ratio 0.6 (1.1-2.2) L 05/04/16 10:50 Consult Discharge Plan - Plan
[2016-05-04] MEDS ORDERED: Heparin 25,000 UNIT/500 ML D5W 25,000 UNIT/500 ML MLS IVC SCH (17:30)
[2016-05-04] MEDS: Sucralfate 1 GM TABLET PO SCH ×2 (17:35→21:33)
[2016-05-04] MEDS: Insulin LISPRO 300 UNITS/3 ML VIAL SQ SCH (17:35)
[2016-05-04] MEDS ORDERED: Insulin LISPRO 300 UNITS/3 ML VIAL SQ SCH (18:00)
[2016-05-04] MEDS ORDERED: *HR* Heparin 5,000 UNIT/ML VIAL SQ SCH (18:00)
[2016-05-04 18:02] LABS: Mean Corpuscular HGB Conc 31.9 g/dL (31.6-35.5); Mean Corpuscular Hemoglobin 29.5 pg (28.0-33.3); Mean Corpuscular Volume 92.3 fL (83.0-100.0); Mean Platelet Volume 10.6 fL (9.4-12.4); Platelet Count 288 K/mcL (140-400); Red Blood Count 5.09 M/mcL (3.82-4.97); Red Cell Distribution Width 15.9 % (11.5-14.5)
[2016-05-04] MEDS: Famotidine 20 MG TABLET PO SCH (21:34)
[2016-05-04] MEDS: Insulin DETEMIR 100 UNIT/ML X5UNITS SQ SCH (21:35)
[2016-05-05 05:21] LABS: Basophils # 0.1 K/mcL (0.0-0.2); Basophils % 1.1 %; Eosinophils # 0.2 K/mcL (0.0-0.6); Eosinophils % 2.2 %; Hematocrit 45.6 % (35.3-44.9); Hemoglobin 14.6 g/dL (11.5-15.4); Immature Granulocytes % 0.3 % (0-4); Lymphocytes # 3.4 K/mcL (0.6-4.6); Lymphocytes % 46.4 %; Mean Corpuscular Hemoglobin 29.6 pg (28.0-33.3); Mean Corpuscular Volume 92.3 fL (83.0-100.0); Monocytes # 0.7 K/mcL (0.0-1.3); Monocytes % 9.2 %; Nucleated Red Blood Cells 0.3 /100 WBC (0); Platelet Count 291 K/mcL (140-400); Red Blood Count 4.94 M/mcL (3.82-4.97); Segmented Neutrophils % 40.8 %
[2016-05-05 05:40] LABS: Calcium 9.7 mg/dL (8.6-10.8); Potassium 4.5 mEq/L (3.5-4.5)
[2016-05-05 06:03] LABS: Activated Partial Thrombo Time 165.2 Seconds (26.0-36.0)
[2016-05-05 06:27] LABS: Heparin anti-factor XA UFH 1.34 IU/mL (0.30-0.70)
[2016-05-05] MEDS: Sucralfate 1 GM TABLET PO SCH ×4 (08:21→21:15)
[2016-05-05] MEDS: Insulin LISPRO 300 UNITS/3 ML VIAL SQ SCH ×3 (08:21→17:45)
[2016-05-05] MEDS: Famotidine 20 MG TABLET PO SCH ×2 (08:22→21:15)
[2016-05-05] MEDS: Fluticasone Propionate Nasal 50 MCG/SPRAY BOTTLE NS SCH (08:22)
[2016-05-05] MEDS: Pantoprazole 40 MG VIAL IVP SCH (08:22)
[2016-05-05] MEDS ORDERED: Spironolactone 25 MG TABLET PO SCH (09:00)
[2016-05-05] MEDS ORDERED: Aspirin Enteric Coated 81 MG Tablet PO SCH (09:00)
[2016-05-05] MEDS ORDERED: Diltiazem CD (24hr) 120 MG CAPSULE PO SCH (09:00)
--- NOTE | 2016-05-05 09:33 | Electrocardiograph Report ---
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
--- NOTE | 2016-05-05 09:42 | ECHO - Doppler Report ---
Echo with Saline Contrast Name: Peyton Queen Date of Study: 05/04/2016 Date: 1945 Ht: 67.0 in Medical Record#: [id number] Age: 71 Wt: 227.0 lb Gender: Female BSA: 2.13 Order #: [id number] Location: [facility] Room #: 2NE30 Reading Physician: Fabrice Reynolds MD, [facility] Brick Cleaner: Lola Fischer Ordering Physician: Rosaura Roy CNP Primary Physician: Noah Conteh MD Indications: AFlutter, Cerebrovascular Accident Impressions: Low-normal LV systolic function, LVEF 50%. There is atypical septal motion consistent with bundle branch block. Mild left ventricular diastolic dysfunction. Normal right ventricular structure and function. Probable small patent foramen ovale (PFO) noted on agitated saline contrast study. No significant valvular dysfunction. No evidence of pulmonary hypertension. Left Ventricular Wall Motion: Rest Echo Findings All wall segments showed normal motion. Findings: Study Quality * Technically adequate exam. ECG Findings * Sinus rhythm with occasional PVCs. Left Ventricle * Low-normal LV systolic function, LVEF 50%. There is atypical septal motion consistent with bundle branch block. * Normal LV size and wall thickness. * Mild left ventricular diastolic dysfunction. Right Ventricle * Normal right ventricular structure and function. Left Atrium * Normal left atrial size. Right Atrium * Normal right atrial size. Interatrial Septum * Probable small patent foramen ovale (PFO) noted on agitated saline contrast study. Aorta * Normally sized aortic root. Pericardium * There is a trivial pericardial effusion present. IVC * The IVC is not well evaluated. Aortic Valve * Trileaflet aortic valve. * Mildly sclerotic aortic valve leaflets. * No aortic stenosis. * No aortic regurgitation. Mitral Valve * Normal mitral valve structure. * No mitral stenosis. * Trace mitral regurgitation. Tricuspid Valve * Normal tricuspid valve structure. * No tricuspid stenosis. * Trace tricuspid regurgitation. * No evidence of pulmonary hypertension. Pulmonic Valve * Pulmonic valve not well visualized. * No pulmonic stenosis. * No pulmonic regurgitation. History Hypertension Diabetes Hypercholesteremia 09/04/2014 a Previous Echo was performed. Contrast: Agitated saline 20 ml. Measurements: BP: 179/ 79 2D Normal Values RVIDd: 3.08 cm IVSd: 1.00 cm 0.6 - 1.0 cm LVIDd: 4.90 cm 3.7 - 5.6 cm LVPWd: .90 cm 0.6 - 1.1 cm LVIDs: 3.20 cm 1.5 - 3.6 cm AO: 3.00 cm < 4.0 cm LA volume: 50 Mitral Valve Peak E:.60 m/sec Peak A:.94 m/sec E/A Ratio:0.6 Tricuspid Valve TV Regurg Peak Grad: 16.00mmHg TV Regurg Peak Kain: 1.99m/sec Updated by Fabrice Reynolds MD, [facility] on 05/05/2016 9:36:18 AM electronically signed on 05/05/2016 9:37:45 AM with status of Final Wall Motion Storm: 1=Normal, 2=Hypokinesis, 3=Akinesis, 4=Dyskinesis, 5=Aneurysmal, 6=Hyperkinetic, X=Not Visualized (Blank)=Missing
--- NOTE | 2016-05-05 12:12 | Cardiology Consult Note ---
Date of Encounter: 05/05/16 Time of Encounter: 11:30 Assessment and Plan (1) CVA (cerebral vascular accident) Current Visit: Yes Status: Acute Per Cardiology: Patient woke up unable to speak and with right sided facial droop. CT head showed old lacunar infarct. MRI showed acute left MCA vascular territory infarcts. Continues to have expressive aphasia. Neurology following. Echocardiogram shows EF 50%, mild diastolic dysfunction, normal RV structure and function, probable small patent bright ovale with agitated saline, no significant valvular dysfunction, no pulmonary hypertension, no segmental wall motion abnormalities. Prelim CD shows bilateral nonstenotic plaque-- no carotid bruits appreciated. Cardiology consult for concerns of possible atrial fibrillation, however upon review of ECGs all show sinus rhythm. Telemetry reviewed shows sinus rhythm with average heart rate 64, no atrial fibrillation appreciated. On IV Hep gtt., asa, statin. Will review ECGs/Tele with Dr. Noah Muhammad. Patient is DNR/CCA. Qualifiers: CVA mechanism: embolism Precerebral and cerebral artery: unspecified cerebral artery Qualified Code(s): I63.40 - Cerebral infarction due to embolism of unspecified cerebral artery (2) Pneumonia Current Visit: Yes Status: Acute Per Cardiology: CXR showed: "1. Low lung volumes 2. Multifocal patchy bilateral airspace opacities, nonspecific. Cannot exclude a developing multifocal pneumonia'. Patient with reports of fever/chills/cough with greenish sputum over the past week. Afebrile with no leokocytosis. Managment per primary service. Qualifiers: Pneumonia type: due to unspecified organism Laterality: bilateral Qualified Code(s): J18.9 - Pneumonia, unspecified organism (3) Hypertension Current Visit: Yes Status: Acute Per Cardiology: Reports SBP at home usually 140's to 150's. SBP eleavted 160's currently. Optimize BP meds. Qualifiers: Hypertension type: essential hypertension Qualified Code(s): I10 - Essential (primary) hypertension Discussion w patient/family: The assessment and plan as outlined above was discussed with the patient and/or family members who expressed understanding and agreement. All questions were answered. Thank you for involving us in the care of your patient. Please call with any questions. History of Present Illness Consult date: 05/05/16 Requesting physician: Santana Yi Consult reason: Acute CVA, Concern for possible afib Chief complaint: Per "she fell out of bed yesterday morning" History of present illness: Ms. Queen is a 71 year old female with a relevant past medical history of hypertension, hyperlipidemia, diabetes mellitus type 2, CKD IV. Patient seen today with at bedside. Patient currently unable to speak with expressive aphasia. Occasionally able to communicate one-word answers. Nods head yes or no and follows simple verbal commands. Appears A&Ox3. reports yesterday morning upon awakening she fell out of bed. He reports she's been unable to speak to him since that episode. She apparently over the past week has had cough with greenish productive sputum, fever, and chills. At time of event patient indicates she did feel dizzy and lightheaded. Denies any chest pain or palpitations. Denies any past history of TIA or stroke. Denies any past heart disease. They deny any past history of atrial fibrillation. She currently denies any chest pain, palpitations, shortness of breath. They confirm her desire of DNR status. Past Med Surg Social Fam HX - Past Medical History Attestation: Yes The following information was validated with the patient. Source: patient, old records reviewed, obtained from family Medical history: diabetes, GERD, hyperlipidemia, hypertension, renal disease, thyroid disease Psychiatric history: depression - Past Surgical History Surgical History: cholecystectomy, hysterectomy, orthopedic, other (hip replacement x4, bilateral knee replacement, bilateral rotator cuff) - Social History Smoking Status: Never smoker Alcohol use: none Drug use: none Medications and Allergies Aspirin Enteric Coated [Aspirin EC] 81 mg PO DAILY 12/16/15 [History] Atenolol 100 mg PO DAILY 12/16/15 [History] Diltiazem HCl [Diltiazem ER] 120 mg PO DAILY 12/16/15 [History] Ergocalciferol (VITAMIN D2) [Vitamin D2 (50,000 UNIT)] 50,000 unit PO QWEEK 02/20 [History] Fluticasone Propionate Nasal [Flonase] 1 spray NS DAILY 12/16/15 [History] Insulin Glargine,Hum.rec.anlog [Lantus Solostar] 25 unit SQ QAM 12/16/15 [ History] Insulin Glargine,Hum.rec.anlog [Lantus Solostar] 30 unit SQ QPM 12/16/15 [ History] Losartan Potassium [Cozaar] 100 mg PO DAILY 12/16/15 [History] Pantoprazole Sodium [Protonix] 40 mg PO BID 12/16/15 [History] Pravastatin Sodium [Pravachol] 40 mg PO DAILY 12/16/15 [History] Ranitidine HCl [Heartburn Relief] 150 mg PO BID 12/16/15 [History] Spironolactone [Aldactone] 25 mg PO DAILY 12/16/15 [History] Sucralfate [Carafate] 1 gm PO QIDAC 12/16/15 [History] HYDROcodone/Acet 5/325 mg [[place] 5-325 mg] 1 tab PO Q8H PRN 05/04/16 [History] Levothyroxine [Synthroid] 100 mcg PO DAILY 05/04/16 [History] Allergies codeine Allergy (Verified 12/16/15 07:49) Palpitations Penicillins Allergy (Verified 12/16/15 07:49) Rash Sulfa (Sulfonamide Antibiotics) Allergy (Verified 12/16/15 07:49) Anaphylaxis All Systems Review: A 10-system review of systems was performed and is negative for pertinent findings except as documented above in the HPI. - Constitutional Constitutional: chills, fever(s) - Cardiovascular Cardiovascular: as per HPI - Respiratory Respiratory: cough, other (greenish sputum) - Neurological Neurological: abnormal speech, focal weakness Physical Examination Vital Signs, Last 4 Hours Temp Pulse Resp BP Pulse Ox 05/05/16 11:48 97.8 F 59 18 166/99 94 L 05/05/16 08:31 94 L General: No Apparent Distress HEENT: Atraumatic, Normocephaly, Mucus Membranes Moist Neck: No JVD, Normal carotid pulses Cardiac: Reg Rate and Rhythm, Normal S1 and S2, No Murmur Lungs: Normal Breath Sounds, No Wheeze, Rales, Rhonchi Neuro: Alert and responsive, Other (Expressive aphasia, occasionally able to say one word, positive movement of all treatments 4, facial droop noted) Abdomen: Soft, Non-Tender Skin: No rashes noted on visualized skin Musculoskeletal: No Chest Wall Tenderness Extremities: No Edema, Normal Pulses Results 05/05/16 04:34 05/05/16 04:34 Lab Results Laboratory Tests 02/15/16 05/04/16 05/04/16 08:56 10:50 10:50 INR 1.1 Creatinine Est GFR (Non-Af Amer) 28 L AST 20 ALT 10 Troponin I LDL Cholesterol, Calc TSH 05/04/16 05/05/16 05/05/16 10:50 04:34 04:34 INR Creatinine 1.59 H Est GFR (Non-Af Amer) 32 L AST ALT Troponin I 0.01 LDL Cholesterol, Calc 67 TSH 05/05/16 04:34 INR Creatinine Est GFR (Non-Af Amer) AST ALT Troponin I LDL Cholesterol, Calc TSH 0.287 L ITS Impressions Cervical Spine CT 05/04/16 10:28 IMPRESSION: 1. Normal cervical spine alignment with no acute fracture. There are multilevel degenerative changes resulting in canal and foraminal stenosis. 2. Bilateral upper lobe consolidative changes concerning for pneumonia. 3. 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 Review of the prior CT thorax 2014 and 2010 demonstrates stability. D/ / 05/04/2016 11:55:24 Ho Schultz MD / cortney Interpreting Provider: Ho Schultz MD Chest X-Ray 05/04/16 10:28 IMPRESSION: 1. Low lung volumes 2. Multifocal patchy bilateral airspace opacities, nonspecific. Cannot exclude a developing multifocal pneumonia. D/ / 05/04/2016 11:42:33 Mejia Escalona MD / cecy Interpreting Provider: Mejia Escalona MD Head CT 05/04/16 10:28 IMPRESSION: Small lacunar infarct in the right frontal zarate radiata, likely old. MRI brain can better determine the chronicity of this finding. Mild parenchymal volume loss. Mild chronic microvascular disease. The results were sent to radiology results communication. D/ / Flavio Lu MD / Flavio Lu MD Interpreting Provider: Flavio Lu MD Brain MRI 05/04/16 13:45 IMPRESSION: Acute left MCA vascular territory infarcts. The findings were sent to the Radiology Results Communication Center at 8:26 pm on 05/04/2016to be communicated to a licensed caregiver. D/ / Andre Hunter MD / Andre Hunter MD Interpreting Provider: Andre Hunter MD Active Medications Acetaminophen (Tylenol) 650 mg PO Q6HR PRN PRN Reason: Mild Pain (1-3) Stop: 11/03/16 13:49 Aspirin (Aspirin Ec) 81 mg PO DAILY [facility] Stop: 11/04/16 09:01 Last Admin: 05/05/16 08:22 Dose: 81 mg Dextrose/Water (Dextrose 50% (Syg)) 25 ml IVP AD PRN PRN Reason: Hypoglycemia Stop: 11/03/16 14:50 Ergocalciferol (Drisdol (50,000 Unit)) 50,000 unit PO We@0900 RAYMOND Stop: 11/03/16 15:31 Last Admin: 05/05/16 05:20 Dose: Not Given Famotidine (Pepcid) 20 mg PO BID [facility] Stop: 11/03/16 21:01 Last Admin: 05/05/16 08:22 Dose: 20 mg Fluticasone Propionate (Flonase) 50 mcg NS DAILY [place] PRN Reason: Protocol Stop: 11/04/16 09:01 Last Admin: 05/05/16 08:22 Dose: 50 mcg Glucagon (Glucagen) 1 mg IM ONCE PRN PRN Reason: Hypoglycemia Stop: 11/03/16 14:50 Glucose (Gluctose) 15 gm PO ONCE PRN PRN Reason: Hypoglycemia Stop: 11/03/16 14:50 Glucose (Gluctose) 30 gm PO ONCE PRN PRN Reason: Hypoglycemia Stop: 11/03/16 14:50 Heparin Sodium (Porcine) (Heparin) 7,200 unit 70 unit/kg (7200 unit) IVP Q6HR PRN PRN Reason: SEE COMMENTS Stop: 11/03/16 17:21 Heparin Sodium (Porcine) (Heparin) 3,600 unit 35 unit/kg (3600 unit) IVP Q6H PRN PRN Reason: SEE COMMENTS Stop: 11/03/16 17:21 Dextrose (Dextrose 5%) 1,000 mls @ 100 mls/hr IV CONT PRN PRN Reason: HYPOGLYCEMIA Stop: 11/03/16 14:50 Heparin Sodium/Dextrose (Heparin 25,000 Unit/500 Ml D5w) 25,000 unit in 500 mls @ 28.83 mls/hr IVC .[id number] RAYMOND; 14 UNIT/KG/HR PRN Reason: Protocol Stop: 11/03/16 17:31 Last Titration: 05/05/16 07:27 Dose: 11.07 unit/kg/hr, 22.8 mls/hr Insulin Detemir (Levemir) 16 unit 0.15 unit/kg (16 unit) SQ HS [facility] Stop: 11/03/16 21:01 Last Admin: 05/04/16 21:35 Dose: 16 unit Insulin Human Lispro (Humalog) 0 units SQ TIDWM [place] PRN Reason: Protocol Stop: 11/03/16 17:01 Last Admin: 05/05/16 11:53 Dose: Not Given Levothyroxine Sodium (Synthroid) 100 mcg PO DAILY [facility] Stop: 11/04/16 09:01 Last Admin: 05/05/16 08:22 Dose: 100 mcg Naloxone HCl (Narcan) 0.4 mg IVP Q2MIN PRN PRN Reason: Opioid Reversal Stop: 11/03/16 13:49 Ondansetron HCl (Zofran) 4 mg IVP Q8HR PRN PRN Reason: Nausea And Vomiting Stop: 11/03/16 13:49 Pantoprazole Sodium (Protonix) 40 mg IVP DAILY [facility] Stop: 11/04/16 09:01 Last Admin: 05/05/16 08:22 Dose: 40 mg Simvastatin (Zocor) 20 mg PO DAILY [facility] Stop: 11/04/16 09:01 Last Admin: 05/05/16 08:22 Dose: 20 mg Sucralfate (Carafate) 1 gm PO QIDAC [facility] Stop: 11/03/16 16:31 Last Admin: 05/05/16 11:53 Dose: 1 gm - Imaging and Cardiology Chest Xray: report reviewed Echo: report reviewed - EKG Interpretation EKG results cardiology: personally reviewed, normal ECG, sinus rhythm, no diagnostic ischemia, other (24 hour telemetry reviewed with average heart rate 64, sinus rhythm, no A. fib appreciated) Consult Discharge Plan - Plan Referrals: Noah Conteh MD [Primary Care Provider] - 05/12/16 10:20 am
--- NOTE | 2016-05-05 12:42 | Neurology Progress Note ---
Date of Encounter: 05/05/16 Time of Encounter: 12:38 Assessment and Plan (1) Stroke Current Visit: Yes Status: Acute Qualifiers: CVA mechanism: embolism Precerebral and cerebral artery: unspecified cerebral artery Qualified Code(s): I63.40 - Cerebral infarction due to embolism of unspecified cerebral artery (2) CVA (cerebral vascular accident) Current Visit: Yes Status: Acute Patient developed acute aphasia, right sided weakness, with MRI of brain showing three separate acute infarct, at different hemisphere, one to the right and two at the left MCA territory the cause is likely embolic and due to her new development of atrial flutter/atrial fibrillation, it seems to me that she should be anti-coagulated group home. Sizes of infarcts are small and does not appear to be contraindication for anticoagulation. Either coumadin with heparin bridge or NOVACs should be appropriate. Please continue medical and supportive. Await carotid duplex. Qualifiers: CVA mechanism: embolism Precerebral and cerebral artery: unspecified cerebral artery Qualified Code(s): I63.40 - Cerebral infarction due to embolism of unspecified cerebral artery Subjective Principal diagnosis: aphasia Interval history: patient seen and examined. MRI of brain completed last night showing multiple ischemic infarct, involving left MCA and right posterior temporal lobe at the white matter region. Patient's speech slightly better but still significantly aphasic. Carotid artery duplex still pending. Patient is on heparin drip and Aspirin. Cardiology consulted and patient no longer in atrial fibrillation rhythm Objective - Constitutional Vitals: Temp Pulse Resp BP Pulse Ox 97.8 F 59 18 166/99 94 L 05/05/16 11:48 05/05/16 11:48 05/05/16 11:48 05/05/16 11:48 05/05/16 11:48 - Neurological Exam Sensorimotor examination: Present: other (Unable to assess due to aphasia) Motor Examination: Present: other (Move all extremities, strenght at least 4+/5 bilaerally. Unable to check pronator drift though) Mental Status Examination: Present: awake, alert, no agnosia (Aphasic, and essentially mute) Cranial nerve examination: Present: PERRL, EOMI, visual kenny intact (Unable to assess due to aphasia), sensory to face intact (Unable to assess), mastication intact, no facial asymmetry is present (Right facial droop noted), hearing is intact symmetrically, soft palate elevates bilaterally upon phonation (Unable to assess), gag reflex intact (Unable to assess), flexes SCM and trapezius muscles symmetrically with full power, tongue protrudes midline ( Unable to assess) - VTE Documentation of Mechanical Device: Graduated compression elastic hosiery Results - Laboratory Findings CBC and BMP: 05/05/16 04:34 05/05/16 04:34 Abnormal lab findings: Abnormal lab results Hct 45.6 % (35.3-44.9) H 05/05/16 04:34 RDW 16.0 % (11.5-14.5) H 05/05/16 04:34 Nucleated RBCs/100 WBC 0.3 /100 WBC (0) H 05/05/16 04:34 APTT 165.2 Seconds (26.0-36.0) H* D 05/05/16 04:34 Heparin Anti-Xa, Unfract 1.34 IU/mL (0.30-0.70) H* 05/05/16 04:34 BUN 24 mg/dL (7-20) H 05/05/16 04:34 Creatinine 1.59 mg/dL (0.57-1.11) H 05/05/16 04:34 Est GFR ( Amer) 39 (> 60) L 05/05/16 04:34 Est GFR (Non-Af Amer) 32 (> 60) L 05/05/16 04:34 POC Glucose 143 (58-89) H 05/04/16 21:20 Hemoglobin A1c 7.6 % (-5.6) H 05/04/16 10:50 Serum Total Protein 8.7 g/dL (6.0-8.3) H 05/04/16 10:50 Albumin 3.3 g/dL (3.5-5.0) L 05/04/16 10:50 Globulin 5.4 g/dL (2.4-3.5) H 05/04/16 10:50 Albumin/Globulin Ratio 0.6 (1.1-2.2) L 05/04/16 10:50 TSH 0.287 mcIU/mL (0.350-4.840) L 05/05/16 04:34 Consult Discharge Plan - Plan Referrals: Noah Conteh MD [Primary Care Provider] - 05/12/16 10:20 am
--- NOTE | 2016-05-05 14:06 | Internal Med Progress Note ---
Addendum entered and electronically signed by Chloe Lang DO 05/05 16:39: After speaking with Neurology again this afternoon, BELGICA was ordered and pt was placed back on Heparin drip. Original Note: <EusebionoreensadaChloe Betty - Last Filed: 05/05/16 16:20> Date of Encounter: 05/05/16 Time of Encounter: 09:45 - Assessment and plan (1) CVA (cerebral vascular accident) Current Visit: Yes Status: Acute Assessment and plan: Continues to have aphasia Neurology consulted, MRI of brain demonstrating three separate acute infarcts in different hemispheres, one in the right and two in the left MCA territory. Cardiology consulted, on admission it was reported that the pt had atrial fibrillation. According to patient and family, pt has no history of afib. Cardiology looked at EKG and tracings on file and reported that they did not see evidence of afib. Echo showed EF 50%, atypical septal motion consistent with bundle branch block, mild left ventricular structure and function, probable small PFO noted on agitate saline contrast study, no significant valvular dysfunction and no evidence of pulmonary hypertension. Spoke with Dr. Solomon on the phone and it was recommended to stopped the heparin drip and place pt on aspirin 325mg and plan for insertion of loop recorder tomorrow in order to determine if pt is in fact having episodes of afib which would be reason for mcfp anticoagulation Pt put on Heparin 5,000 units SQ Q12H for DVT prophylaxis. Qualifiers: CVA mechanism: embolism Precerebral and cerebral artery: unspecified cerebral artery Qualified Code(s): I63.40 - Cerebral infarction due to embolism of unspecified cerebral artery (2) Pneumonia Current Visit: Yes Status: Acute Assessment and plan: Pt reports fever/chill/cough with greenish sputum over th past week. Afebrile with no leukocytosis. CXR demonstrated low lung volumes, multifocal patchy bilateral airspace opacities, nonspecific, and could not exclude developing multifocal pneumonia Cervical spine CT demonstrated bilateral upper lobe consolidative changes concerning for pneumonia Started on Levaquin 750mg daily Qualifiers: Pneumonia type: due to unspecified organism Laterality: bilateral Lung location: unspecified part of lung Qualified Code(s): J18.9 - Pneumonia, unspecified organism (3) Hypertension Current Visit: Yes Status: Acute Assessment and plan: BP today 166/99 Will continue to monitor Qualifiers: Hypertension type: essential hypertension Qualified Code(s): I10 - Essential (primary) hypertension (4) DVT prophylaxis Current Visit: Yes Status: Acute Assessment and plan: Heparin 5,000 units SQ Q12H - Subjective Interval history: Pt continues to have aphasia on exam this morning. Is able to nod head yes/no in order to answer questions. Able to follow commands for examination. Family is in the room with patient on questioning as well. Pt admits to feeling facial numbness, denies numbness/tingling anywhere else. Pt denies feeling weakness in any extremity. - Constitutional Vitals: Temp Pulse Resp BP Pulse Ox 97.8 F 59 18 166/99 94 L 05/05/16 11:48 05/05/16 11:48 05/05/16 11:48 05/05/16 11:48 05/05/16 11:48 General appearance: Present: A&O X 3, no acute distress - Head Head exam: Present: atraumatic, normal inspection, normocephalic - Eye Eye exam: Present: PERRL, conjuntiva pink, sclera anicteric - ENT ENT exam: Present: mucous membranes moist - Neck Neck exam general surgery: Present: supple, trachea midline - Respiratory Respiratory exam: Present: CTAB. Absent: rales, rhonchi, wheezes - Cardiovascular Cardiovascular exam: Present: RRR, +S1, +S2 - GI/Abdominal GI/Abdominal exam: Present: normal bowel sounds, soft. Absent: rebound, rigid, tenderness - Extremities Exam Extremities exam: Present: warm, radial pulses palpable and symetrical. Absent : cyanotic, pedal edema - Neurological Exam Neurological exam: Present: alert, oriented X3, facial droop (Right sided), speech deficit (aphasia) Additional comments: BUE and BLE with 4/5 strength Unable to protrude tongue, Unable to puff out cheeks on exam - Skin Skin exam: Present: dry, intact Internal Medicine: Result - Labs CBC & Chem 7: 05/05/16 04:34 05/05/16 04:34 Labs: Short CBC 05/04/16 05/05/16 Range/Units 17:50 04:34 WBC 7.5 7.3 (4.3-11.1) K/mcL Hgb 15.0 14.6 (11.5-15.4) g/dL Hct 47.0 H 45.6 H (35.3-44.9) % Plt Count 288 291 (140-400) K/mcL Neutrophils # 3.0 (1.6-8.9) K/mcL BMP 05/05/16 04:34 Sodium 139 Potassium 4.5 Chloride 107 Carbon Dioxide 24 BUN 24 H Creatinine 1.59 H Glucose 79 Calcium 9.7 - ABG Interpretation ABG results: PT/INR, D-dimer PT 11.5 Seconds (9.4-12.1) 05/04/16 10:50 - VTE Documentation of Mechanical Device: Graduated compression elastic hosiery Consult Discharge Plan - Plan Referrals: Noah Conteh MD [Primary Care Provider] - 05/12/16 10:20 am <Santana Yi - Last Filed: 05/05/16 20:11> Date of Encounter: 05/05/16 - Assessment and plan (1) CVA (cerebral vascular accident) Current Visit: Yes Status: Acute Qualifiers: CVA mechanism: embolism Precerebral and cerebral artery: middle cerebral artery Laterality of affected vessel: left Qualified Code(s): I63.412 - Cerebral infarction due to embolism of left middle cerebral artery (2) Aphasia Current Visit: Yes Status: Acute (3) Diabetes Current Visit: Yes Status: Acute Qualifiers: Diabetes mellitus type: type 2 Diabetes mellitus complication status: with neurologic complications Diabetes mellitus complication detail: with other neurological complication Diabetes mellitus continuous churn buttermaker insulin use: with continuous churn buttermaker use Qualified Code(s): E11.49 - Type 2 diabetes mellitus with other diabetic neurological complication; Z79.4 - intermediate accountant (current) use of insulin - Constitutional Vitals: Temp Pulse Resp BP Pulse Ox 97.4 F L 63 16 171/98 93 L 05/05/16 14:41 05/05/16 14:41 05/05/16 14:41 05/05/16 14:41 05/05/16 14:41 Internal Medicine: Result - Labs CBC & Chem 7: 05/05/16 16:50 05/05/16 04:34 Labs: Short CBC 05/05/16 05/05/16 Range/Units 04:34 16:50 WBC 7.3 7.5 (4.3-11.1) K/mcL Hgb 14.6 14.5 (11.5-15.4) g/dL Hct 45.6 H 44.6 (35.3-44.9) % Plt Count 291 281 (140-400) K/mcL Neutrophils # 3.0 (1.6-8.9) K/mcL BMP 05/05/16 04:34 Sodium 139 Potassium 4.5 Chloride 107 Carbon Dioxide 24 BUN 24 H Creatinine 1.59 H Glucose 79 Calcium 9.7 - ABG Interpretation ABG results: PT/INR, D-dimer PT 12.3 Seconds (9.4-12.1) H 05/05/16 16:50 - Attending Attestation I examined this patient and my medical decision-making was reviewed with the Resident Physician. I agree with the documented findings, disposition and treatment plan as described except to the extent set forth below. Ms. Queen is currently admitted for acute CVA. She remains moderate to high risk due to recent CVA and need for continued monitoring. Ms. Queen is a little better today. No new issues overnight. No CP or SOB. No cough. Exam Alert. Comfortable. Expressive aphasia Heart reg No wheeze No edema I/P 1 Acute CVA 2. Expressive aphasia 3. DM 4. HTN Further diagnoses and plan as above.
--- NOTE | 2016-05-05 14:30 | Electrocardiograph Report ---
[facility] Test Date: 2016-05-04 Pat Name: LAKESHA BENNETT Department: 111 Room: 2NE30 Gender: F [employer] Design Supervisor: ALEXANDRO : 1945 Requested By: Santana Yi Order Number: [id number] Reading MD: Noah Muhammad Measurements Intervals [place] Rate: 62 P: 24 ID: [id number] QRS: -27 QRSD: 96 T: -31 QT: 405 QTc: 411 Interpretive Statements SINUS RHYTHM WITH FIRST DEGREE AV BLOCK LOW QRS VOLTAGE IN PRECORDIAL LEADS INFERIOR MYOCARDIAL INFARCTION, OF INDETERMINATE AGE ANTEROSEPTAL MYOCARDIAL INFARCTION, OF INDETERMINATE AGE MODERATE T-WAVE ABNORMALITY, CONSIDER LATERAL ISCHEMIA Electronically Signed On 05-05-16 14:25:29 EST by Noah Muhammad
[2016-05-05] MEDS ORDERED: *HR* Heparin 5,000 UNIT/ML VIAL IVP ONE (16:37)
[2016-05-05] MEDS ORDERED: *HR* Heparin 5,000 UNIT/ML VIAL IVP PRN ×2 (16:37)
[2016-05-05] MEDS ORDERED: Heparin 25,000 UNIT/500 ML D5W 25,000 UNIT/500 ML MLS IVC SCH (16:45)
[2016-05-05 17:18] LABS: INR 1.1; Prothrombin Time 12.3 Seconds (9.4-12.1)
[2016-05-05 17:21] LABS: Activated Partial Thrombo Time 37.3 Seconds (26.0-36.0); Hematocrit 44.6 % (35.3-44.9); Hemoglobin 14.5 g/dL (11.5-15.4); Mean Corpuscular HGB Conc 32.5 g/dL (31.6-35.5); Mean Corpuscular Hemoglobin 29.8 pg (28.0-33.3); Mean Corpuscular Volume 91.8 fL (83.0-100.0); Mean Platelet Volume 10.6 fL (9.4-12.4); Platelet Count 281 K/mcL (140-400); Red Blood Count 4.86 M/mcL (3.82-4.97); Red Cell Distribution Width 15.9 % (11.5-14.5)
[2016-05-05] MEDS: Levofloxacin 750 MG/150 ML 750 MG/150 ML BAG IVPB SCH (17:35)
[2016-05-05] MEDS ORDERED: *HR* Heparin 5,000 UNIT/ML VIAL SQ SCH (18:00)
--- NOTE | 2016-05-05 19:22 | Carotid Imaging Report ---
Carotid Duplex Patient Name:Peyton Queen Order Number:[id number] Procedure Date:05/04/2016 Date:1945ge:71 yrs Gender:Female Rt.BP:179 / 79 mmHgHeart Rate: Location:[facility] Room #: 2NE30 Hand Stamper:Lola Fischer Referring MD:Rosaura Roy CNP tin dipper:Noah Conteh MD Reading MD:Abe Welsh MD Primary Indications:Cerebrovascular Accident Risk Factors Yes/No Hypertension Yes Diabetes Yes Hypercholesterolemia Yes Impressions: The bilateral carotid arteries have minimal plaque throughout. Recommendations: Test completed on 05/04/2016 at 8:14:00 pm. Findings Carotid Duplex: Right: The right proximal common carotid artery has a PSV of 51 cm/s and a EDV of 14 cm/s. The right mid common carotid artery has a PSV of 60 cm/s and a EDV of 14 cm/s. The right distal common carotid artery has a PSV of 71 cm/s and a EDV of 17 cm/s. There is nonstenotic plaque in the right bifurcation with a PSV of 71 cm/s and a EDV of 18 cm/s. There is nonstenotic plaque in the right proximal internal carotid artery with a PSV of 74 cm/s and a EDV of 20 cm/s. The right mid internal carotid artery has a PSV of 85 cm/s and a EDV of 23 cm/s. The right distal internal carotid artery has a PSV of 70 cm/s and a EDV of 16 cm/s. The right eca has a PSV of 117 cm/s and a EDV of 11 cm/s. The right vertebral artery has a PSV of 37 cm/s and a EDV of 12 cm/s. There is antegrade spectral Doppler flow patterns. Left: The left proximal common carotid artery has a PSV of 64 cm/s and a EDV of 10 cm/s. The left mid common carotid artery has a PSV of 76 cm/s and a EDV of 13 cm/s. The left distal common carotid artery has a PSV of 62 cm/s and a EDV of 13 cm/s. There is nonstenotic plaque in the left bifurcation with a PSV of 47 cm/s and a EDV of 11 cm/s. The left proximal internal carotid artery has a PSV of 51 cm/s and a EDV of 18 cm/s. The left mid internal carotid artery has a PSV of 69 cm/s and a EDV of 22 cm/s. The left distal internal carotid artery has a PSV of 73 cm/s and a EDV of 28 cm/s. The left eca has a PSV of 97 cm/s and a EDV of 12 cm/s. The left vertebral artery has a PSV of 44 cm/s and a EDV of 13 cm/s. There is antegrade spectral Doppler flow patterns. Prior Study: No prior study available for comparison. Carotid Results Right PSV EDV Assessment Proximal CCA 51 14 Mid CCA 60 14 Distal CCA 71 17 Bifurcation 71 18 Non Stenotic Plaque Proximal ICA 74 20 Non Stenotic Plaque Mid ICA 85 23 Distal ICA 70 16 ECA 117 11 Vertebral Artery 37 12 Antegrade Flow Left PSV EDV Assessment Proximal CCA 64 10 Mid CCA 76 13 Distal CCA 62 13 Bifurcation 47 11 Non Stenotic Plaque Proximal ICA 51 18 Mid ICA 69 22 Distal ICA 73 28 ECA 97 12 Vertebral Artery 44 13 Antegrade Flow Ratio's Updated by Abe Welsh MD on 05/05/2016 7:16:22 PM electronically signed on 05/05/2016 7:16:40 PM with status of Final
[2016-05-05] MEDS: Insulin DETEMIR 100 UNIT/ML X5UNITS SQ SCH (21:17)
[2016-05-06 00:18] LABS: Basophils # 0.1 K/mcL (0.0-0.2); Basophils % 1.3 %; Eosinophils # 0.2 K/mcL (0.0-0.6); Eosinophils % 2.6 %; Hematocrit 42.9 % (35.3-44.9); Hemoglobin 14.1 g/dL (11.5-15.4); Immature Granulocytes % 0.1 % (0-4); Lymphocytes # 3.6 K/mcL (0.6-4.6); Lymphocytes % 51.1 %; Mean Corpuscular HGB Conc 32.9 g/dL (31.6-35.5); Mean Corpuscular Hemoglobin 30.1 pg (28.0-33.3); Mean Corpuscular Volume 91.5 fL (83.0-100.0); Mean Platelet Volume 10.5 fL (9.4-12.4); Monocytes # 0.7 K/mcL (0.0-1.3); Monocytes % 10.1 %; Neutrophils # 2.5 K/mcL (1.6-8.9); Nucleated Red Blood Cells 0.3 /100 WBC (0); Platelet Count 276 K/mcL (140-400); Red Blood Count 4.69 M/mcL (3.82-4.97); Red Cell Distribution Width 15.9 % (11.5-14.5); Segmented Neutrophils % 34.8 %
[2016-05-06 00:31] LABS: Calcium 9.5 mg/dL (8.6-10.8); Potassium 4.5 mEq/L (3.5-4.5)
[2016-05-06 01:05] LABS: Activated Partial Thrombo Time > 360.0 Seconds (26.0-36.0)
[2016-05-06 01:07] LABS: Heparin anti-factor XA UFH 1.64 IU/mL (0.30-0.70)
[2016-05-06] MEDS: Sucralfate 1 GM TABLET PO SCH ×4 (08:12→20:55)
[2016-05-06] MEDS: Insulin LISPRO 300 UNITS/3 ML VIAL SQ SCH ×3 (08:13→17:22)
[2016-05-06] MEDS: Fluticasone Propionate Nasal 50 MCG/SPRAY BOTTLE NS SCH (09:00)
[2016-05-06] MEDS: Pantoprazole 40 MG VIAL IVP SCH (09:00)
[2016-05-06] MEDS ORDERED: Aspirin 325 MG TABLET PO SCH (09:00)
[2016-05-06] MEDS ORDERED: Aspirin 81 MG TAB.CHEW PO SCH (09:00)
[2016-05-06 09:22] LABS: Activated Partial Thrombo Time 154.7 Seconds (26.0-36.0)
[2016-05-06 09:33] LABS: Heparin anti-factor XA UFH 1.01 IU/mL (0.30-0.70)
--- NOTE | 2016-05-06 10:49 | Event Note ---
Date of Encounter: 05/06/16 Time of Encounter: 09:00 - Cardiology Event Note Patient shows improvement in her expressive aphasia. BELGICA pending per Neurology. No afib noted upon review of tele again. Discussed and reviewed with Dr. Noah Muhammad, plan for BELGICA and if no significant findings, proceed with loop recorder insertion today. Patient and agreeable. All questions answered. Further recs after BELGICA and possible loop insertion.
[2016-05-06] MEDS ORDERED: *HR* FentaNYL (PF) 100 MCG/2 ML VIAL ONE (13:15)
[2016-05-06] MEDS ORDERED: *HR* Midazolam HCl 5 MG/5 ML VIAL IVP ONE (13:15)
[2016-05-06] MEDS ORDERED: 0.9 % Sodium Chloride 1,000 ML ONE (13:22)
--- NOTE | 2016-05-06 14:01 | Discharge Summary ---
<Chloe Lang - Last Filed: 05/06/16 14:45> Date of Encounter: 05/06/16 Time of Encounter: 09:30 - Discharge Diagnosis (1) CVA (cerebral vascular accident) Priority: Primary Status: Acute Qualifiers: CVA mechanism: embolism Precerebral and cerebral artery: unspecified cerebral artery Qualified Code(s): I63.40 - Cerebral infarction due to embolism of unspecified cerebral artery (2) Pneumonia Priority: Primary Status: Acute Qualifiers: Pneumonia type: due to unspecified organism Laterality: bilateral Lung location: unspecified part of lung Qualified Code(s): J18.9 - Pneumonia, unspecified organism (3) Hypertension Priority: Secondary Status: Acute Qualifiers: Hypertension type: essential hypertension Qualified Code(s): I10 - Essential (primary) hypertension (4) DVT prophylaxis Priority: Secondary Status: Acute - Discharge Medications Prescriptions: Aspirin 325 mg PO DAILY #30 tablet Levofloxacin [Levaquin] 750 mg PO Q48H #5 tablet Home Medications: Atenolol 100 mg PO DAILY 12/16/15 [History] Diltiazem HCl [Diltiazem ER] 120 mg PO DAILY 12/16/15 [History] Ergocalciferol (VITAMIN D2) [Vitamin D2 (50,000 UNIT)] 50,000 unit PO QWEEK 02/20 [History] Fluticasone Propionate Nasal [Flonase] 1 spray NS DAILY 12/16/15 [History] Insulin Glargine,Hum.rec.anlog [Lantus Solostar] 25 unit SQ QAM 12/16/15 [ History] Insulin Glargine,Hum.rec.anlog [Lantus Solostar] 30 unit SQ QPM 12/16/15 [ History] Losartan Potassium [Cozaar] 100 mg PO DAILY 12/16/15 [History] Pantoprazole Sodium [Protonix] 40 mg PO BID 12/16/15 [History] Pravastatin Sodium [Pravachol] 40 mg PO DAILY 12/16/15 [History] Ranitidine HCl [Heartburn Relief] 150 mg PO BID 12/16/15 [History] Spironolactone [Aldactone] 25 mg PO DAILY 12/16/15 [History] Sucralfate [Carafate] 1 gm PO QIDAC 12/16/15 [History] HYDROcodone/Acet 5/325 mg [Jasper 5-325 mg] 1 tab PO Q8H PRN 05/04/16 [History] Levothyroxine [Synthroid] 100 mcg PO DAILY 05/04/16 [History] Aspirin 325 mg PO DAILY #30 tablet 05/06/16 [Rx] Levofloxacin [Levaquin] 750 mg PO Q48H #5 tablet 05/06/16 [Rx] Allergies/Adverse Reactions: Allergies codeine Allergy (Verified 12/16/15 07:49) Palpitations Penicillins Allergy (Verified 12/16/15 07:49) Rash Sulfa (Sulfonamide Antibiotics) Allergy (Verified 12/16/15 07:49) Anaphylaxis Procedures/tests Complete & Pending: Procedures Performed prior 72 hours Category Date Time Status CL Insert Loop Recorder [CL] Routine Subway Guard 05/06/16 10:09 Ordered ECG 12 lead ECG [ECG] Routine Y 05/04/16 Completed EV BELGICA transesophageal echo Routine Y 05/06/16 08:00 Ordered Date of admission: 05/04/16 15:40 Primary care physician: Noah Conteh MD - Patient Status Disposition: Transfer SNF Condition: Good Functional capacity at discharge: uses cane/walker Overall status at discharge: patient is progressing back to baseline - Discharge Instructions Follow Up With: Noah Conteh MD [Primary Care Provider] - 05/12/16 10:20 am Antwan Solomon MD [Partnered Physician] - Noah Muhammad MD [Partnered Physician] - Forms: ED Satisfaction Letter Additional Instructions: Follow-up with PCP in one week Follow-up with Neurology in 1-2 weeks Follow-up with Cardiology in 1-2 weeks - Diet and Activity Activity: as per physical therapy Diet: low fat, low cholesterol Hospital course: Ms. Queen is a 71 year old female who presented to [facility] after her had found her at home, on the floor unable, to speak. Her last known well was at 10pm the night prior and she was therefore not a candidate for tPA. CT in the ED demonstrated an old lacunar infarct. She has a history of CKD, however on arrival her creatinine was 2.04 which was above her baseline of 1.75. CXR demonstrated nonspecific multifocal patchy airspace opacities. Neurology was consulted from the ED. Echocardiogram demonstrated EF of 50%, atypical septal motion consistent with bundle branch block. mild left ventricular diastolic dysfunction, normal right ventricular structure and function, probable small PFO , no significant valvular dysfunction, and no evidence of pulmonary hypertension. Carotid doppler study demonstrated bilateral carotid arteries with minimal plaque throughout. It was initially documented that pt had episode of afib on EKG. Pt was in sinus rhythm on telemetry throughout her stay. Cardiology was consulted and they could find no evidence of afib on any EKGs or strips. Neurology reviewed the MRI brain and reported three separate acute infarcts, in different hemispheres, one in the right and two in the left MCA territory with thought that this may be embolic in nature. Due to these findings, a BLEGICA was completed to check for need for chronic anticoagulation. BELGICA was unremarkable. A loop recorder was placed in order to monitor for any episodes of afib/aflutter that the patient might have. Will discharge home on aspirin 325mg daily. Speech therapy evaluated pt and recommended speech therapy sessions four times a week upon discharge. PT/OT evaluated patient and recommended placement in ECF for rehab for strengthening. Pt was found to have bilateral upper lobe consolidative changes concerning for pneumonia on cervical spine CT. Pt was started on Levaquin. Will discharge home on antibiotics to complete treatment. She will follow-up with neurology, cardiology and her PCP upon discharge. - Time Spent with Patient Total time spent providing and/or coordinating discharge services: Greater than 30 minutes - Constitutional Vitals: Temp Pulse Resp BP Pulse Ox 97.8 F 61 16 122/85 96 05/06/16 11:16 05/06/16 11:16 05/06/16 11:16 05/06/16 11:16 05/06/16 11:47 General appearance: Present: A&O X 3, no acute distress - Head Head exam: Present: atraumatic, normocephalic - Eye Eye exam: Present: PERRL, conjuntiva pink, sclera anicteric Pupils: Present: PERRL - Neck Neck exam general surgery: Present: supple, trachea midline. Absent: lymphadenopathy - Respiratory Respiratory exam: Present: CTAB. Absent: accessory muscle use, rales, rhonchi, wheezes - Cardiovascular Cardiovascular exam: Present: RRR, +S1, +S2. Absent: diastolic murmur, gallop, rubs, systolic murmur - GI/Abdominal GI/Abdominal exam: Present: normal bowel sounds, soft, no peritoneal signs. Absent: distended, tenderness - Extremities Exam Extremities exam: Present: warm, radial pulses palpable and symetrical. Absent : calf tenderness, cyanotic, pedal edema - Neurological Exam Neurological exam: Present: alert, CN II-XII intact, oriented X3, facial droop ( Right sided facial droop, improving), speech deficit (Aphasia, improving). Absent: pronater drift Additional comments: Unable to protrude tongue or puff out cheeks. - Skin Skin exam: Present: dry, intact - VTE Documentation of Mechanical Device: Graduated compression elastic hosiery <Santana Yi - Last Filed: 05/06/16 18:15> Date of Encounter: 05/06/16 - Discharge Diagnosis (1) CVA (cerebral vascular accident) Status: Acute Qualifiers: CVA mechanism: embolism Precerebral and cerebral artery: middle cerebral artery Laterality of affected vessel: left Qualified Code(s): I63.412 - Cerebral infarction due to embolism of left middle cerebral artery (2) Aphasia Status: Acute (3) Diabetes Status: Acute Qualifiers: Diabetes mellitus type: type 2 Diabetes mellitus complication status: with neurologic complications Diabetes mellitus complication detail: with other neurological complication Diabetes mellitus superintendent terminal insulin use: with fpc use Qualified Code(s): E11.49 - Type 2 diabetes mellitus with other diabetic neurological complication; Z79.4 - superintendent marine oil terminal (current) use of insulin Procedures/tests Complete & Pending: Procedures Performed prior 72 hours Category Date Time Status CL Insert Loop Recorder [CL] Routine Subway Guard 05/06/16 10:09 Ordered ECG 12 lead ECG [ECG] Routine Y 05/04/16 Completed EV BELGICA transesophageal echo Routine Y 05/06/16 08:00 Completed Date of admission: 05/04/16 15:40 Primary care physician: Noah Conteh MD Hospital course: Ms. Queen is a 71 year old female - Time Spent with Patient Total time spent providing and/or coordinating discharge services: 40min - Constitutional Vitals: Temp Pulse Resp BP Pulse Ox 97.3 F L 68 16 124/76 95 05/06/16 15:24 05/06/16 15:24 05/06/16 15:24 05/06/16 15:24 05/06/16 15:24 - Attending Attestation I examined this patient and my medical decision-making was reviewed with the Resident Physician. I agree with the documented findings, disposition and treatment plan as described except to the extent set forth below. Ms. Queen was up in romo. She had BELGICA and no clot there. Loop recorder placed. She is awaiting insurance approval for [place]. Exam Alert. Comfortable Still with aphasia Heart reg No wheeze I/P 1. CVA 2. HTN 3. Pneumonia Plan d/c to SNF when approved by insurance.
--- NOTE | 2016-05-06 14:06 | Event Note ---
Date of Encounter: 05/06/16 Time of Encounter: 14:05 - Cardiology Event Note S/p BELGICA with no evidence of thrombolic source per Dr. Vance. S/p Loop recorder insertion per Dr. Noah Muhammad. F/u Cardiology as outpatient, will s/o, re-consult PRN.
--- NOTE | 2016-05-06 14:31 | ECHO - Doppler Report ---
Transesophageal Echocardiogram Name: Peyton Queen Date of Study: 05/06/2016 Date: 1945 Ht: 68.0in Medical Record#: [id number] Age: 71 Wt: 127.0lb Gender: Female BSA: 1.69 Order #: [id number] Location: [facility] Room #: 2NE30 Reading Physician: Geovanny Vance DO, [facility] Customs Broker: Loc Ritchie RN Ordering Physician: Chloe Yancey DO Primary Physician: Noah Conteh MD Indications: Cerebrovascular Accident Impressions: LVEF 55%. Normal LV size and function. The right ventricle was normal in size and systolic function. LA appendage is normal in appearance. No thrombus. Aneurysmal interatrial septum. No evidence of inter-atrial shunting noted with saline contrast. No significant valvular disease. Normal appearing thoracic aorta without significant plaque formation. No cardiac source of emboli identified. Left Ventricular Wall Motion: Transesophageal Echo Findings All wall segments showed normal motion. Procedure Summary: After explaining the risks, benefits, and alternatives of the procedure to the patient in detail and answering all questions to satisfaction, an informed consent was obtained in writing. The patient was NPO for the six hours prior to the procedure. The patient denied dysphagia, odynophagia, and loose teeth. The patient was monitored with periodic automated blood pressures and continuous pulse oximetry and telemetry. Continuous oxygen was administered by PA. The patient was placed in the full upright position and the posterior oropharynx was anesthetized as above and complete suppression of the gag reflex was obtained. The patient was then placed in the left lateral decubitus position, the neck was flexed, and a bite block was placed in the patient's mouth. IV sedation was administered. Once adequate sedation was achieved, a well-lubricated anteflexed multipoint intraesophageal echocardiographic probe was inserted into the midline posterior oropharynx. Gentle pressure was applied as the patient swallowed and the esophagus was intubated without difficulty. The scope was advanced to the mid esophagus without encountering resistance. Images were obtained from the mid and upper esophagus. Images from the gastric globe were obtained. The intra-atrial septum was assessed by color-flow Doppler and agitated saline. The scope was then rotated approximately 180 degrees and withdrawn, visualizing the length of the aorta. The scope was then slowly withdrawn as the patient was continually suctioned. The patient tolerated the procedure well. Medication Given: Time Medication Dose Units Route 13:28 Versed 2 mg IV 13:28 Fentanyl 25 mcg IV 13:30 Versed 2 mg IV 13:30 Fentanyl 25 mcg IV Contrast Type Amount Agitated saline 10 Findings: Study Quality * Technically adequate exam. ECG Findings * Normal sinus rhythm Left Ventricle * LVEF 55%. * Normal LV size and function. Right Ventricle * The right ventricle was normal in size and systolic function. Left Atrium * Within normal limits. * LA appendage is normal in appearance. No thrombus. Right Atrium * Within normal limits. Interatrial Septum * Aneurysmal interatrial septum. No evidence of inter-atrial shunting noted with saline contrast. Aortic Valve * The aortic valve is Tricuspid. * Normal structure and function. * No aortic regurgitation. * No aortic stenosis. Mitral Valve * Normal structure and function * Trace/trivial mitral regurgitation. * No mitral stenosis. Tricuspid Valve * Normal structure. Pulmonic Valve * Normal structure and function. * No pulmonic regurgitation. Aorta * The aortic root is not dilated. Pericardium * No pericardial effusion. Pulmonary Artery * Normal pulmonary artery. Complications: None History: Hypertension Diabetes Hypercholesteremia Previous Echo05/04/2016 Updated by Geovanny Vance DO, FACPeter, DONNA ESCOBEDO on 05/06/2016 2:24:30 PM Wall Motion Storm: 1=Normal, 2=Hypokinesis, 3=Akinesis, 4=Dyskinesis, 5=Aneurysmal, 6=Hyperkinetic, X=Not Visualized (Blank)=Missing Wall MotionIndex BELGICA Total of all scored kenny 17 Index Divided by ---- = 1 Total number of kenny scored 17
--- NOTE | 2016-05-06 14:59 | Neurology Progress Note ---
Date of Encounter: 05/06/16 Time of Encounter: 14:56 Assessment and Plan (1) Stroke Current Visit: Yes Status: Acute Qualifiers: CVA mechanism: embolism Precerebral and cerebral artery: unspecified cerebral artery Qualified Code(s): I63.40 - Cerebral infarction due to embolism of unspecified cerebral artery (2) CVA (cerebral vascular accident) Current Visit: Yes Status: Acute Embolic events but no definitive source of embolic identified. Patient is placed loop recorder. Agree with aspirin 325mg daily. Risk factor reduction/ modification for CVA. PT with speech therapy. Qualifiers: CVA mechanism: embolism Precerebral and cerebral artery: unspecified cerebral artery Qualified Code(s): I63.40 - Cerebral infarction due to embolism of unspecified cerebral artery Subjective Principal diagnosis: aphasia Interval history: patient seen and examined. Still has significant aphasia, no significant changes from yesterday. Occasionally she could speak a sentence, which is considered an improvement. Slight weakness to the right arm noted. BELGICA completed and showed no atrial appendage thrombus or other significant abnormality. Agrees on antiplatelet therapy. Cardiology on board and loop recorder placement. Patient is waiting to be discharged to rehab Objective - Constitutional Vitals: Temp Pulse Resp BP Pulse Ox 97.8 F 61 16 122/85 96 05/06/16 11:16 05/06/16 11:16 05/06/16 11:16 05/06/16 11:16 05/06/16 11:47 - Neurological Exam Sensorimotor examination: Present: other (Unable to assess due to aphasia) Motor Examination: Present: other (Move all extremities, strenght at least 4+/5 bilaerally. Unable to check pronator drift though) Mental Status Examination: Present: awake, alert, no agnosia (Aphasic, and essentially mute) Cranial nerve examination: Present: PERRL, EOMI, visual kenny intact (Unable to assess due to aphasia), sensory to face intact (Unable to assess), mastication intact, no facial asymmetry is present (Right facial droop noted), hearing is intact symmetrically, soft palate elevates bilaterally upon phonation (Unable to assess), gag reflex intact (Unable to assess), flexes SCM and trapezius muscles symmetrically with full power, tongue protrudes midline ( Unable to assess) - VTE Documentation of Mechanical Device: Graduated compression elastic hosiery Results - Laboratory Findings CBC and BMP: 05/06/16 00:09 05/06/16 00:09 Abnormal lab findings: Abnormal lab results RDW 15.9 % (11.5-14.5) H 05/06/16 00:09 Nucleated RBCs/100 WBC 0.3 /100 WBC (0) H 05/06/16 00:09 PT 12.3 Seconds (9.4-12.1) H 05/05/16 16:50 APTT 154.7 Seconds (26.0-36.0) H* D 05/06/16 08:49 Heparin Anti-Xa, Unfract 1.01 IU/mL (0.30-0.70) H* 05/06/16 08:49 BUN 22 mg/dL (7-20) H 05/06/16 00:09 Creatinine 1.75 mg/dL (0.57-1.11) H 05/06/16 00:09 Est GFR ( Amer) 35 (> 60) L 05/06/16 00:09 Est GFR (Non-Af Amer) 28 (> 60) L 05/06/16 00:09 Glucose 157 mg/dL (70-99) H 05/06/16 00:09 POC Glucose 114 (58-89) H 05/06/16 11:47 Hemoglobin A1c 7.6 % (-5.6) H 05/04/16 10:50 Serum Total Protein 8.7 g/dL (6.0-8.3) H 05/04/16 10:50 Albumin 3.3 g/dL (3.5-5.0) L 05/04/16 10:50 Globulin 5.4 g/dL (2.4-3.5) H 05/04/16 10:50 Albumin/Globulin Ratio 0.6 (1.1-2.2) L 05/04/16 10:50 TSH 0.287 mcIU/mL (0.350-4.840) L 05/05/16 04:34 Consult Discharge Plan - Plan Additional Instructions: Follow-up with PCP in one week Follow-up with Neurology in 1-2 weeks Follow-up with Cardiology in 1-2 weeks Referrals: Noah Conteh MD [Primary Care Provider] - 05/12/16 10:20 am Noah Muhammad MD [Partnered Physician] - Antwan Solomon MD [Partnered Physician] - Prescriptions: Aspirin 325 mg PO DAILY #30 tablet Levofloxacin [Levaquin] 750 mg PO Q48H #5 tablet
--- NOTE | 2016-05-06 15:15 | Physician Discharge Referral ---
ExtendedCare Referral Info Transfer To: [facility] Provider in Charge after Transfer: PCP Institutional Level of Care: Skilled - Diagnosis (1) CVA (cerebral vascular accident) Priority: Primary Status: Acute (2) Pneumonia Priority: Secondary Status: Acute (3) Hypertension Priority: Secondary Status: Acute - Transfer Medications Prescriptions: Aspirin 325 mg PO DAILY #30 tablet Levofloxacin [Levaquin] 750 mg PO Q48H #5 tablet Home Medications: Atenolol 100 mg PO DAILY 12/16/15 [History] Diltiazem HCl [Diltiazem ER] 120 mg PO DAILY 12/16/15 [History] Ergocalciferol (VITAMIN D2) [Vitamin D2 (50,000 UNIT)] 50,000 unit PO QWEEK 02/20 [History] Fluticasone Propionate Nasal [Flonase] 1 spray NS DAILY 12/16/15 [History] Insulin Glargine,Hum.rec.anlog [Lantus Solostar] 25 unit SQ QAM 12/16/15 [ History] Insulin Glargine,Hum.rec.anlog [Lantus Solostar] 30 unit SQ QPM 12/16/15 [ History] Losartan Potassium [Cozaar] 100 mg PO DAILY 12/16/15 [History] Pantoprazole Sodium [Protonix] 40 mg PO BID 12/16/15 [History] Pravastatin Sodium [Pravachol] 40 mg PO DAILY 12/16/15 [History] Ranitidine HCl [Heartburn Relief] 150 mg PO BID 12/16/15 [History] Spironolactone [Aldactone] 25 mg PO DAILY 12/16/15 [History] Sucralfate [Carafate] 1 gm PO QIDAC 12/16/15 [History] HYDROcodone/Acet 5/325 mg [Isabel 5-325 mg] 1 tab PO Q8H PRN 05/04/16 [History] Levothyroxine [Synthroid] 100 mcg PO DAILY 05/04/16 [History] Aspirin 325 mg PO DAILY #30 tablet 05/06/16 [Rx] Levofloxacin [Levaquin] 750 mg PO Q48H #5 tablet 05/06/16 [Rx] Allergies/Adverse Reactions: Allergies codeine Allergy (Verified 12/16/15 07:49) Palpitations Penicillins Allergy (Verified 12/16/15 07:49) Rash Sulfa (Sulfonamide Antibiotics) Allergy (Verified 12/16/15 07:49) Anaphylaxis - Respiratory Orders Smoking Cessation: Smoking cessation has been advised. For more information, call the [place] Tobacco Quit Line at 1-258-NUMQ-NOW. - Ancillary Orders May use pressure relief devices daily prn, May go on JUDITH w/family/respon green party w /meds at nurse discretion PRN, May consult with Dentist, Childcare Aide, Senior Sales Administrator PRN - Advance Directives Code Status: DNR-Arrest - Mobility Orders Ambulate (Per physical therapy recommendations) - Rehabiliation Orders Rehab Potential: Good Rehab Orders: ROM Exercises, Evaluation for Physical Therapy, Evaluation for Occupational Therapy, Evaluation for Speech Therapy - Diet Orders Regular CERTIFICATION: I certify that the transfer of the above named patient to an Extended Care Facility is necessary for the continuing treatment of the diagnosis listed. The above information is true and accurate reflection of patient's current condition. Confidential - Redisclosure prohibited without a patient's written consent.
[2016-05-06] MEDS: Famotidine 20 MG TABLET PO SCH ×2 (16:16→20:55)
[2016-05-06] MEDS: Insulin DETEMIR 100 UNIT/ML X5UNITS SQ SCH (20:56)
[2016-05-07] MEDS: Fluticasone Propionate Nasal 50 MCG/SPRAY BOTTLE NS SCH (08:58)
[2016-05-07] MEDS: Aspirin 325 MG TABLET PO SCH (08:58)
[2016-05-07] MEDS: Sucralfate 1 GM TABLET PO SCH ×4 (08:58→21:04)
[2016-05-07] MEDS: Pantoprazole 40 MG VIAL IVP SCH (08:58)
[2016-05-07] MEDS: Famotidine 20 MG TABLET PO SCH ×2 (08:59→21:04)
[2016-05-07] MEDS: Insulin LISPRO 300 UNITS/3 ML VIAL SQ SCH ×3 (09:00→18:00)
--- NOTE | 2016-05-07 09:14 | Internal Med Progress Note ---
<Chloe Lang - Last Filed: 05/07/16 09:11> Date of Encounter: 05/07/16 Time of Encounter: 09:11 - Assessment and plan (1) CVA (cerebral vascular accident) Current Visit: Yes Status: Acute Assessment and plan: Continues to have aphasia although seems to be improving as she can say some words and occasionally short sentences Neurology consulted, MRI of brain demonstrating three separate acute infarcts in different hemispheres, one in the right and two in the left MCA territory. Cardiology consulted, on admission it was reported that the pt had atrial fibrillation. According to patient and family, pt has no history of afib. Cardiology looked at EKG and tracings on file and reported that they did not see evidence of afib. Echo showed EF 50%, atypical septal motion consistent with bundle branch block, mild left ventricular structure and function, probable small PFO noted on agitate saline contrast study, no significant valvular dysfunction and no evidence of pulmonary hypertension. BELGICA was negative and Loop recorder placed yesterday Heparin drip stopped, on Aspirin 325mg daily Discharge pending placement and insurance approval Qualifiers: CVA mechanism: embolism Precerebral and cerebral artery: unspecified cerebral artery Qualified Code(s): I63.40 - Cerebral infarction due to embolism of unspecified cerebral artery (2) Pneumonia Current Visit: Yes Status: Acute Assessment and plan: Pt reports fever/chill/cough with greenish sputum over th past week. Afebrile with no leukocytosis. CXR demonstrated low lung volumes, multifocal patchy bilateral airspace opacities, nonspecific, and could not exclude developing multifocal pneumonia Cervical spine CT demonstrated bilateral upper lobe consolidative changes concerning for pneumonia Levaquin 750mg Q48H Qualifiers: Pneumonia type: due to unspecified organism Laterality: bilateral Lung location: unspecified part of lung Qualified Code(s): J18.9 - Pneumonia, unspecified organism (3) Hypertension Current Visit: Yes Status: Acute Assessment and plan: BP today 113/73 Will continue to monitor Qualifiers: Hypertension type: essential hypertension Qualified Code(s): I10 - Essential (primary) hypertension - Subjective Interval history: Pt continues to have aphasia on exam this morning although she is now able to say some words and occasionally small sentences. She is able to nod head yes/ no in order to answer questions. Able to follow commands for examination. Family is in the room with patient on questioning as well. Pt denies feeling weakness, numbness or tingling. - Constitutional Vitals: Temp Pulse Resp BP Pulse Ox 97.7 F 65 16 113/73 95 05/07/16 07:16 05/07/16 07:16 05/07/16 07:16 05/07/16 07:16 05/07/16 07:16 General appearance: Present: A&O X 3, no acute distress - Head Head exam: Present: atraumatic, normocephalic - Eye Eye exam: Present: PERRL, conjuntiva pink, sclera anicteric Pupils: Present: PERRL - Neck Neck exam general surgery: Present: supple, trachea midline. Absent: lymphadenopathy - Respiratory Respiratory exam: Present: CTAB. Absent: accessory muscle use, rales, rhonchi, wheezes - Cardiovascular Cardiovascular exam: Present: RRR, +S1, +S2. Absent: diastolic murmur, gallop, rubs, systolic murmur - GI/Abdominal GI/Abdominal exam: Present: normal bowel sounds, soft, no peritoneal signs. Absent: distended, tenderness - Extremities Exam Extremities exam: Present: warm, radial pulses palpable and symetrical. Absent : calf tenderness, cyanotic, pedal edema - Neurological Exam Neurological exam: Present: alert, CN II-XII intact, oriented X3, strengths equal and symetr throughout, facial droop, speech deficit (Aphasia, able to say some words and occasionally short sentences). Absent: pronater drift - Skin Skin exam: Present: dry, intact Internal Medicine: Result - Labs CBC & Chem 7: 05/06/16 00:09 05/06/16 00:09 - ABG Interpretation ABG results: PT/INR, D-dimer PT 12.3 Seconds (9.4-12.1) H 05/05/16 16:50 - VTE Documentation of Mechanical Device: Graduated compression elastic hosiery Consult Discharge Plan - Plan Additional Instructions: Follow-up with PCP in one week Follow-up with Neurology in 1-2 weeks Follow-up with Cardiology in 1-2 weeks Referrals: Noah Conteh MD [Primary Care Provider] - 05/12/16 10:20 am Noah Muhammad MD [Partnered Physician] - Antwan Solomon MD [Partnered Physician] - Prescriptions: Aspirin 325 mg PO DAILY #30 tablet Levofloxacin [Levaquin] 750 mg PO Q48H #5 tablet <Santana Yi - Last Filed: 05/07/16 17:12> Date of Encounter: 05/07/16 - Assessment and plan (1) CVA (cerebral vascular accident) Current Visit: Yes Status: Acute Qualifiers: CVA mechanism: embolism Precerebral and cerebral artery: middle cerebral artery Laterality of affected vessel: left Qualified Code(s): I63.412 - Cerebral infarction due to embolism of left middle cerebral artery (2) Aphasia Current Visit: Yes Status: Acute (3) Diabetes Current Visit: Yes Status: Acute Qualifiers: Diabetes mellitus type: type 2 Diabetes mellitus complication status: with neurologic complications Diabetes mellitus complication detail: with other neurological complication Diabetes mellitus terminal press operator insulin use: with half-way use Qualified Code(s): E11.49 - Type 2 diabetes mellitus with other diabetic neurological complication; Z79.4 - terminal press operator (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 I agree with the documented findings, disposition and treatment plan as described except to the extent set forth below. Ms. Queen is currently admitted for acute CVA. She remains moderate to high risk due to potential for worsening neurological status. Ms. Queen is resting comfortably. No new issues overnight. Awaiting insurance approval for SNF. Exam Alert. Comfortable Mucus membranes moist Heart reg Lungs diminished but clear. I/P 1. Acute CVA 2. PNA Further problems and plan as above.
[2016-05-07] MEDS: Levofloxacin 750 MG/150 ML 750 MG/150 ML BAG IVPB SCH (17:58)
[2016-05-07] MEDS: Insulin DETEMIR 100 UNIT/ML X5UNITS SQ SCH (21:04)
[2016-05-08] MEDS: Insulin LISPRO 300 UNITS/3 ML VIAL SQ SCH ×3 (08:01→16:45)
[2016-05-08] MEDS: Aspirin 325 MG TABLET PO SCH (08:36)
[2016-05-08] MEDS: Famotidine 20 MG TABLET PO SCH ×2 (08:36→20:45)
[2016-05-08] MEDS: Sucralfate 1 GM TABLET PO SCH ×4 (08:36→20:45)
[2016-05-08] MEDS: Fluticasone Propionate Nasal 50 MCG/SPRAY BOTTLE NS SCH (08:43)
[2016-05-08] MEDS: Pantoprazole 40 MG VIAL IVP SCH (08:47)
--- NOTE | 2016-05-08 18:34 | Internal Med Progress Note ---
Date of Encounter: 05/08/16 Time of Encounter: 09:00 - Assessment and plan (1) CVA (cerebral vascular accident) Current Visit: Yes Status: Acute Assessment and plan: Seems to be slowly improving. Aphasia is improving. Continue supportive care. Qualifiers: CVA mechanism: embolism Precerebral and cerebral artery: middle cerebral artery Laterality of affected vessel: left Qualified Code(s): I63.412 - Cerebral infarction due to embolism of left middle cerebral artery (2) Aphasia Current Visit: Yes Status: Acute Assessment and plan: Slowly improving. (3) Diabetes Current Visit: Yes Status: Acute Assessment and plan: Continue monitor sugars and treat as needed. 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 Queen is currently admitted for acute CVA. She remains moderate risk due to potential neurologic compromise. She is awaiting insurance approval for SNF. Ms. Queen feels OK. Her speech continues to improve. No CP or SOB. No new issues. Ambulation is improving as well. - Constitutional Vitals: Temp Pulse Resp BP Pulse Ox 97.9 F 76 18 137/90 97 05/08/16 15:00 05/08/16 15:00 05/08/16 15:00 05/08/16 15:00 05/08/16 15:00 General appearance: Present: A&O X 3, no acute distress - Head Head exam: Present: normocephalic - Eye Eye exam: Present: conjuntiva pink - ENT ENT exam: Present: mucous membranes dry - Respiratory Respiratory exam: Present: decreased breath sounds, CTAB - Cardiovascular Cardiovascular exam: Present: RRR, systolic murmur. Absent: tachycardia - GI/Abdominal GI/Abdominal exam: Present: soft. Absent: mass, tenderness - Extremities Exam Extremities exam: Present: warm. Absent: pedal edema - Neurological Exam Additional comments: Expressive aphasia slowly improving. - Skin Skin exam: Present: dry, warm. Absent: rash Internal Medicine: Result - Labs CBC & Chem 7: 05/06/16 00:09 05/06/16 00:09 - ABG Interpretation ABG results: PT/INR, D-dimer PT 12.3 Seconds (9.4-12.1) H 05/05/16 16:50 - VTE Documentation of Mechanical Device: Graduated compression elastic hosiery Consult Discharge Plan - Plan Additional Instructions: Follow-up with PCP in one week Follow-up with Neurology in 1-2 weeks Follow-up with Cardiology in 1-2 weeks Referrals: Noah Conteh MD [Primary Care Provider] - 05/12/16 10:20 am Noah Muhammad MD [Partnered Physician] - Antwan Solomon MD [Partnered Physician] - Prescriptions: Aspirin 325 mg PO DAILY #30 tablet Levofloxacin [Levaquin] 750 mg PO Q48H #5 tablet
[2016-05-08] MEDS: Insulin DETEMIR 100 UNIT/ML X5UNITS SQ SCH (20:45)
[2016-05-09 05:49] LABS: Hemoglobin 14.5 g/dL (11.5-15.4); Mean Corpuscular HGB Conc 32.2 g/dL (31.6-35.5); Mean Corpuscular Hemoglobin 30.3 pg (28.0-33.3); Mean Corpuscular Volume 94.1 fL (83.0-100.0); Platelet Count 264 K/mcL (140-400); Red Blood Count 4.78 M/mcL (3.82-4.97); Red Cell Distribution Width 15.9 % (11.5-14.5)
[2016-05-09 06:26] LABS: Calcium 9.4 mg/dL (8.6-10.8); Magnesium 1.7 mg/dL (1.6-2.6); Potassium 4.4 mEq/L (3.5-4.5)
--- NOTE | 2016-05-09 08:19 | Internal Med Progress Note ---
<ZhenGuanaco - Last Filed: 05/09/16 14:18> Date of Encounter: 05/09/16 Time of Encounter: 08:17 - Assessment and plan (1) CVA (cerebral vascular accident) Current Visit: Yes Status: Acute Assessment and plan: Clinically improving, she is speaking more coherently and is able to ambulate with some help BELGICA negative and loop recorder placed on 05/06/16 Currently on ASA, statin; will need to continue upon DC PT/OT still recommends ECF for rehab upon discharge, plan on discharge tomorrow Qualifiers: CVA mechanism: embolism Precerebral and cerebral artery: unspecified cerebral artery Qualified Code(s): I63.40 - Cerebral infarction due to embolism of unspecified cerebral artery (2) Aphasia Current Visit: Yes Status: Acute Assessment and plan: Better today, but still has some difficulty finding words Speech consulted, appreciate recommendations (3) Pneumonia Current Visit: Yes Status: Acute Assessment and plan: Pt is breathing well this morning and not complaining of shortness of breath Cervical spine CT demonstrated bilateral upper lobe consolidative changes concerning for pneumonia Currently on Levaquin 750mg Q48H, has received 3 doses Qualifiers: Pneumonia type: due to unspecified organism Laterality: bilateral Lung location: unspecified part of lung Qualified Code(s): J18.9 - Pneumonia, unspecified organism (4) Insulin dependent diabetes mellitus Current Visit: Yes Status: Chronic Assessment and plan: Blood sugars have been acceptable, will continue with current regimen (5) DVT prophylaxis Current Visit: Yes Status: Acute Assessment and plan: Heparin 5,000 units SQ Q12H - Subjective Interval history: Pt seen and examined. She states she is doing well this morning and is talking more. She had no issues with breakfast without difficulties swallowing. Has been walking with help. - Constitutional Vitals: Temp Pulse Resp BP Pulse Ox 98.3 F 72 16 142/80 97 05/09/16 07:33 05/09/16 07:33 05/09/16 07:33 05/09/16 07:33 05/09/16 07:33 General appearance: Present: cooperative, A&O X 3, pleasant, no acute distress, obese, answers questions appropriately - Head Head exam: Present: atraumatic, normocephalic - Eye Eye exam: Present: PERRL, conjuntiva pink, sclera anicteric - Neck Neck exam general surgery: Present: supple, trachea midline. Absent: lymphadenopathy - Respiratory Respiratory exam: Present: CTAB. Absent: accessory muscle use, rales, rhonchi, wheezes - Cardiovascular Cardiovascular exam: Present: RRR, +S1, +S2. Absent: diastolic murmur, gallop, rubs, systolic murmur - GI/Abdominal GI/Abdominal exam: Present: normal bowel sounds, soft, no peritoneal signs. Absent: distended, tenderness - Extremities Exam Extremities exam: Present: warm, radial pulses palpable and symetrical. Absent : calf tenderness, cyanotic, pedal edema - Neurological Exam Neurological exam: Present: alert, CN II-XII intact, no focal deficits, speech deficit (slighty slow). Absent: pronater drift, facial droop - Skin Skin exam: Present: dry, intact Internal Medicine: Result - Labs CBC & Chem 7: 05/09/16 05:08 05/09/16 05:08 Labs: Short CBC 05/09/16 Range/Units 05:08 WBC 8.4 (4.3-11.1) K/mcL Hgb 14.5 (11.5-15.4) g/dL Hct 45.0 H (35.3-44.9) % Plt Count 264 (140-400) K/mcL BMP 05/09/16 05:08 Sodium 137 Potassium 4.4 Chloride 106 Carbon Dioxide 22 BUN 31 H Creatinine 1.98 H Glucose 138 H Calcium 9.4 - ABG Interpretation ABG results: PT/INR, D-dimer PT 12.3 Seconds (9.4-12.1) H 05/05/16 16:50 - VTE Documentation of Mechanical Device: Graduated compression elastic hosiery Consult Discharge Plan - Plan Additional Instructions: Follow-up with PCP in one week Follow-up with Neurology in 1-2 weeks Follow-up with Cardiology in 1-2 weeks Referrals: Noah Conteh MD [Primary Care Provider] - 05/12/16 10:20 am Noah Muhammad MD [Partnered Physician] - Antwan Solomon MD [Partnered Physician] - Prescriptions: Aspirin 325 mg PO DAILY #30 tablet Levofloxacin [Levaquin] 750 mg PO Q48H #5 tablet <Santana Yi - Last Filed: 05/09/16 18:05> Date of Encounter: 05/09/16 - Assessment and plan (1) CVA (cerebral vascular accident) Current Visit: Yes Status: Acute Qualifiers: CVA mechanism: embolism Precerebral and cerebral artery: middle cerebral artery Laterality of affected vessel: left Qualified Code(s): I63.412 - Cerebral infarction due to embolism of left middle cerebral artery (2) Aphasia Current Visit: Yes Status: Acute (3) Diabetes Current Visit: Yes Status: Acute Qualifiers: Diabetes mellitus type: type 2 Diabetes mellitus complication status: with neurologic complications Diabetes mellitus complication detail: with other neurological complication Diabetes mellitus correction insulin use: with correction use Qualified Code(s): E11.49 - Type 2 diabetes mellitus with other diabetic neurological complication; Z79.4 - retirement (current) use of insulin - Constitutional Vitals: Temp Pulse Resp BP Pulse Ox 98.2 F 72 16 151/90 96 05/09/16 15:00 05/09/16 15:00 05/09/16 15:00 05/09/16 15:00 05/09/16 15:00 Internal Medicine: Result - Labs CBC & Chem 7: 05/09/16 05:08 05/09/16 05:08 Labs: Short CBC 05/09/16 Range/Units 05:08 WBC 8.4 (4.3-11.1) K/mcL Hgb 14.5 (11.5-15.4) g/dL Hct 45.0 H (35.3-44.9) % Plt Count 264 (140-400) K/mcL BMP 05/09/16 05:08 Sodium 137 Potassium 4.4 Chloride 106 Carbon Dioxide 22 BUN 31 H Creatinine 1.98 H Glucose 138 H Calcium 9.4 - ABG Interpretation ABG results: PT/INR, D-dimer PT 12.3 Seconds (9.4-12.1) H 05/05/16 16:50 - Attending Attestation I examined this patient and my medical decision-making was reviewed with the Resident Physician. I agree with the documented findings, disposition and treatment plan as described except to the extent set forth below. Ms. Queen is currently admitted with acute CVA. She remains moderate risk due to potential for worsening neuro status. Ms. Queen continues to slowly improve. No acute issues overnight. Awaiting insurance approval for SNF. Exam Alert Comfortable Speech seems to be slowly improving. Heart reg Lungs clear I/P 1. CVA 2. Aphasia Further diagnoses and plan as above Awaiting insurance approval.
[2016-05-09] MEDS: Aspirin 325 MG TABLET PO SCH (08:42)
[2016-05-09] MEDS: Famotidine 20 MG TABLET PO SCH ×2 (08:42→20:40)
[2016-05-09] MEDS: Pantoprazole 40 MG VIAL IVP SCH (08:42)
[2016-05-09] MEDS: Sucralfate 1 GM TABLET PO SCH ×4 (08:42→20:40)
[2016-05-09] MEDS: Insulin LISPRO 300 UNITS/3 ML VIAL SQ SCH ×3 (08:43→16:21)
[2016-05-09] MEDS: Fluticasone Propionate Nasal 50 MCG/SPRAY BOTTLE NS SCH (08:43)
[2016-05-09] MEDS: Levofloxacin 750 MG/150 ML 750 MG/150 ML BAG IVPB SCH (16:21)
[2016-05-09] MEDS: Insulin DETEMIR 100 UNIT/ML X5UNITS SQ SCH (20:40)
[2016-05-10 06:59] LABS: Calcium 9.7 mg/dL (8.6-10.8); Potassium 4.4 mEq/L (3.5-4.5)
[2016-05-10] MEDS: Sucralfate 1 GM TABLET PO SCH ×4 (09:02→21:17)
[2016-05-10] MEDS: Aspirin 325 MG TABLET PO SCH (09:02)
[2016-05-10] MEDS: Fluticasone Propionate Nasal 50 MCG/SPRAY BOTTLE NS SCH (09:03)
[2016-05-10] MEDS: Famotidine 20 MG TABLET PO SCH ×2 (09:03→21:17)
[2016-05-10] MEDS: Pantoprazole 40 MG VIAL IVP SCH (09:04)
[2016-05-10] MEDS: Insulin LISPRO 300 UNITS/3 ML VIAL SQ SCH ×3 (09:04→17:26)
--- NOTE | 2016-05-10 09:40 | Internal Med Progress Note ---
Date of Encounter: 05/10/16 Time of Encounter: 09:00 - Constitutional Vitals: Temp Pulse Resp BP Pulse Ox 97.4 F L 81 16 131/93 97 05/10/16 07:39 05/10/16 07:39 05/10/16 07:39 05/10/16 07:39 05/10/16 07:39 General appearance: Present: cooperative, A&O X 3, pleasant, no acute distress, obese, answers questions appropriately Internal Medicine: Result - Labs CBC & Chem 7: 05/09/16 05:08 05/10/16 06:17 Labs: BMP 05/10/16 06:17 Sodium 138 Potassium 4.4 Chloride 106 Carbon Dioxide 23 BUN 29 H Creatinine 1.78 H Glucose 137 H Calcium 9.7 - ABG Interpretation ABG results: PT/INR, D-dimer PT 12.3 Seconds (9.4-12.1) H 05/05/16 16:50 - VTE Documentation of Mechanical Device: Graduated compression elastic hosiery Consult Discharge Plan - Plan Additional Instructions: Follow-up with PCP in one week Follow-up with Neurology in 1-2 weeks Follow-up with Cardiology in 1-2 weeks Referrals: Noah Conteh MD [Primary Care Provider] - 05/12/16 10:20 am Noah Muhammad MD [Partnered Physician] - Antwan Solomon MD [Partnered Physician] - Prescriptions: Aspirin 325 mg PO DAILY #30 tablet Levofloxacin [Levaquin] 750 mg PO Q48H #5 tablet
--- NOTE | 2016-05-10 11:12 | Discharge Summary ---
<Rachel Lynch - Last Filed: 05/10/16 14:11> Date of Encounter: 05/10/16 Time of Encounter: 09:00 - Discharge Diagnosis (1) CVA (cerebral vascular accident) Priority: Primary Status: Acute Qualifiers: CVA mechanism: embolism Precerebral and cerebral artery: unspecified cerebral artery Qualified Code(s): I63.40 - Cerebral infarction due to embolism of unspecified cerebral artery (2) Aphasia Priority: Primary Status: Acute (3) Pneumonia Priority: Secondary Status: Acute Qualifiers: Pneumonia type: due to unspecified organism Laterality: bilateral Lung location: unspecified part of lung Qualified Code(s): J18.9 - Pneumonia, unspecified organism - Discharge Medications Prescriptions: Aspirin 325 mg PO DAILY #30 tablet Levofloxacin [Levaquin] 750 mg PO Q48H #5 tablet Home Medications: Atenolol 100 mg PO DAILY 12/16/15 [History] Diltiazem HCl [Diltiazem ER] 120 mg PO DAILY 12/16/15 [History] Ergocalciferol (VITAMIN D2) [Vitamin D2 (50,000 UNIT)] 50,000 unit PO QWEEK 02/20 [History] Fluticasone Propionate Nasal [Flonase] 1 spray NS DAILY 12/16/15 [History] Insulin Glargine,Hum.rec.anlog [Lantus Solostar] 25 unit SQ QAM 12/16/15 [ History] Insulin Glargine,Hum.rec.anlog [Lantus Solostar] 30 unit SQ QPM 12/16/15 [ History] Losartan Potassium [Cozaar] 100 mg PO DAILY 12/16/15 [History] Pantoprazole Sodium [Protonix] 40 mg PO BID 12/16/15 [History] Pravastatin Sodium [Pravachol] 40 mg PO DAILY 12/16/15 [History] Ranitidine HCl [Heartburn Relief] 150 mg PO BID 12/16/15 [History] Spironolactone [Aldactone] 25 mg PO DAILY 12/16/15 [History] Sucralfate [Carafate] 1 gm PO QIDAC 12/16/15 [History] HYDROcodone/Acet 5/325 mg [Standish 5-325 mg] 1 tab PO Q8H PRN 05/04/16 [History] Levothyroxine [Synthroid] 100 mcg PO DAILY 05/04/16 [History] Aspirin 325 mg PO DAILY #30 tablet 05/06/16 [Rx] Levofloxacin [Levaquin] 750 mg PO Q48H #5 tablet 05/06/16 [Rx] Allergies/Adverse Reactions: Allergies codeine Allergy (Verified 12/16/15 07:49) Palpitations Penicillins Allergy (Verified 12/16/15 07:49) Rash Sulfa (Sulfonamide Antibiotics) Allergy (Verified 12/16/15 07:49) Anaphylaxis Date of admission: 05/04/16 15:40 Primary care physician: Noah Conteh MD Discharging clinician: Rachel Lynch Anticipated date of discharge: 05/10/16 - Patient Status Disposition: Transfer SNF Condition: Good Functional capacity at discharge: independent ambulation Overall status at discharge: patient is progressing back to baseline - Discharge Instructions Instructions: Aspirin (By mouth), Levofloxacin (By mouth), Atrial Fibrillation (DC), Diabetes Mellitus Type 2 in Adults (DC), Chronic Hypertension (DC), Pneumonia (DC) Follow Up With: Noah Conteh MD [Primary Care Provider] - 05/12/16 10:20 am Noah Muhammad MD [Partnered Physician] - (follow up 2 weeks) Antwan Solomon MD [Partnered Physician] - (Follow-up 1-2 weeks.) Forms: ED Satisfaction Letter Additional Instructions: Follow-up with PCP in one week Follow-up with Neurology in 1-2 weeks Follow-up with Cardiology in 1-2 weeks - Diet and Activity Activity: as per physical therapy Diet: other (Advanced soft diet chopped meat) Hospital course: Ms. Queen is a 71 year old female who presented to [facility] after her had found her at home, on the floor unable, to speak. Her last known well was at 10pm the night prior and she was therefore not a candidate for tPA. CT in the ED demonstrated an old lacunar infarct. She has a history of CKD, however on arrival her creatinine was 2.04 which was above her baseline of 1.75. CXR demonstrated nonspecific multifocal patchy airspace opacities. Neurology was consulted from the ED. Echocardiogram demonstrated EF of 50%, atypical septal motion consistent with bundle branch block. mild left ventricular diastolic dysfunction, normal right ventricular structure and function, probable small PFO , no significant valvular dysfunction, and no evidence of pulmonary hypertension. Carotid doppler study demonstrated bilateral carotid arteries with minimal plaque throughout. It was initially documented that pt had episode of afib on EKG. Pt was in sinus rhythm on telemetry throughout her stay. Cardiology was consulted and they could find no evidence of afib on any EKGs or strips. Neurology reviewed the MRI brain and reported three separate acute infarcts, in different hemispheres, one in the right and two in the left MCA territory with thought that this may be embolic in nature. Due to these findings, a BELGICA was completed to check for need for chronic anticoagulation. BELGICA was unremarkable. A loop recorder was placed in order to monitor for any episodes of afib/aflutter that the patient might have. Will discharge home on aspirin 325mg daily. Speech therapy evaluated pt and recommended speech therapy sessions four times a week upon discharge. PT/OT evaluated patient and recommended placement in ECF for rehab for strengthening. Pt was found to have bilateral upper lobe consolidative changes concerning for pneumonia on cervical spine CT. Pt was treated with Levaquin and will discharge with PO Levaquin to complete treatment. Patient's aphasia continues to improve over hospitalization. Patient is clinicall stable and will be discharge on 05/10/16 once ECF is arranged and ready to take patient. She will follow-up with neurology, cardiology and her PCP after discharge. - Time Spent with Patient Total time spent providing and/or coordinating discharge services: Greater than 30 minutes - Constitutional Vitals: Temp Pulse Resp BP Pulse Ox 97.4 F L 81 16 131/93 97 05/10/16 07:39 05/10/16 07:39 05/10/16 07:39 05/10/16 07:39 05/10/16 09:00 General appearance: Present: cooperative, A&O X 3, pleasant, no acute distress, obese - Head Head exam: Present: atraumatic, normocephalic - Eye Eye exam: Present: PERRL, conjuntiva pink, sclera anicteric Pupils: Present: PERRL - Neck Neck exam general surgery: Present: supple, trachea midline. Absent: lymphadenopathy - Respiratory Respiratory exam: Present: CTAB. Absent: accessory muscle use, rales, rhonchi, wheezes - Cardiovascular Cardiovascular exam: Present: RRR, +S1, +S2. Absent: diastolic murmur, gallop, rubs, systolic murmur - GI/Abdominal GI/Abdominal exam: Present: normal bowel sounds, soft, no peritoneal signs. Absent: distended, tenderness - Extremities Exam Extremities exam: Present: warm, radial pulses palpable and symetrical. Absent : calf tenderness, cyanotic, pedal edema - Neurological Exam Neurological exam: Present: CN II-XII intact, oriented X3, no focal deficits. Absent: pronater drift, facial droop, speech deficit Additional comments: Patient has some difficulty to find correct words during speech. Per her at bedside, this is in fact much better than on admission. - Skin Skin exam: Present: dry, intact - VTE Documentation of Mechanical Device: Graduated compression elastic hosiery <Oscar Perez P - Last Filed: 05/10/16 19:01> Date of Encounter: 05/10/16 Date of admission: 05/04/16 15:40 Primary care physician: Noah Cotneh MD Hospital course: Ms. Queen is a 71 year old female - Time Spent with Patient Total time spent providing and/or coordinating discharge services: - Constitutional Vitals: Temp Pulse Resp BP Pulse Ox 97.5 F L 83 16 149/92 97 05/10/16 15:21 05/10/16 15:21 05/10/16 15:21 05/10/16 15:21 05/10/16 15:21 - Attending Attestation I examined this patient and my medical decision-making was reviewed with the HEADING REPAIRER/PA/Advanced Practice Nurse/Resident Physician. I agree with the documented findings, disposition and treatment plan as described except to the extent set forth below.
[2016-05-10] MEDS: Insulin DETEMIR 100 UNIT/ML X5UNITS SQ SCH (21:34)
[2016-05-11 05:59] LABS: Calcium 9.4 mg/dL (8.6-10.8); Potassium 4.6 mEq/L (3.5-4.5)
[2016-05-11] MEDS: Famotidine 20 MG TABLET PO SCH ×2 (08:18→19:55)
[2016-05-11] MEDS: Sucralfate 1 GM TABLET PO SCH ×4 (08:18→19:55)
[2016-05-11] MEDS: Aspirin 325 MG TABLET PO SCH (08:18)
[2016-05-11] MEDS: Pantoprazole 40 MG VIAL IVP SCH (08:18)
[2016-05-11] MEDS: Fluticasone Propionate Nasal 50 MCG/SPRAY BOTTLE NS SCH (08:19)
[2016-05-11] MEDS: Insulin LISPRO 300 UNITS/3 ML VIAL SQ SCH ×3 (08:21→17:29)
--- NOTE | 2016-05-11 09:56 | Internal Med Progress Note ---
<Rachel Lynch - Last Filed: 05/11/16 14:46> Date of Encounter: 05/11/16 Time of Encounter: 09:00 - Assessment and plan (1) CVA (cerebral vascular accident) Current Visit: Yes Status: Acute Assessment and plan: - Clinically improving as patient can speak more coherently and is able to ambulate with some help - BELGICA negative and loop recorder placed on 05/06/16 - Currently on ASA, statin and will continue upon DC - PT/OT recommends ECF for rehab upon discharge. Patient is medically stable and ready for discharge but still waiting for insurance authorization. Appreciate social service, PT and OT assistance on patient care and placement. Qualifiers: CVA mechanism: embolism Precerebral and cerebral artery: unspecified cerebral artery Qualified Code(s): I63.40 - Cerebral infarction due to embolism of unspecified cerebral artery (2) Aphasia Current Visit: Yes Status: Acute Assessment and plan: - Expressive aphasia, feels it's better compared to yesterday. - Speech therapy has been consulted. Appreciate assistance on patient care. (3) Pneumonia Current Visit: Yes Status: Resolved Assessment and plan: - Cervical spine CT demonstrated bilateral upper lobe consolidative changes concerning for pneumonia - Has finished 6-day course of Levaquin 750mg Q48H. - Clinically stable and patient denies shortness of breath. Qualifiers: Pneumonia type: due to unspecified organism Laterality: bilateral Lung location: unspecified part of lung Qualified Code(s): J18.9 - Pneumonia, unspecified organism (4) DVT prophylaxis Current Visit: Yes Status: Acute Assessment and plan: - SQ heparin. - Subjective Interval history: No significant event noted overnight. Patient was seen and examined this morning. Patient reports doing fine and feels her speech is getting better. Patient denies vision change, hearing change, numbness/tingling, focal weakness , fever, chills, chest pain, dypsnea. - Constitutional Vitals: Temp Pulse Resp BP Pulse Ox 97.5 F L 89 16 135/84 96 05/11/16 07:28 05/11/16 07:28 05/11/16 07:28 05/11/16 07:28 05/11/16 07:28 General appearance: Present: cooperative, A&O X 3, pleasant, no acute distress, obese - Head Head exam: Present: atraumatic, normocephalic - Eye Eye exam: Present: PERRL, conjuntiva pink, sclera anicteric Pupils: Present: PERRL - Neck Neck exam general surgery: Present: supple, trachea midline. Absent: lymphadenopathy - Respiratory Respiratory exam: Present: CTAB. Absent: accessory muscle use, rales, rhonchi, wheezes - Cardiovascular Cardiovascular exam: Present: RRR, +S1, +S2. Absent: diastolic murmur, gallop, rubs, systolic murmur - GI/Abdominal GI/Abdominal exam: Present: normal bowel sounds, soft, no peritoneal signs. Absent: distended, tenderness - Extremities Exam Extremities exam: Present: warm, radial pulses palpable and symetrical. Absent : calf tenderness, cyanotic, pedal edema - Neurological Exam Neurological exam: Present: CN II-XII intact, oriented X3, no focal deficits. Absent: pronater drift, facial droop, speech deficit Additional comments: Expressive aphasia noted, feels it's slightly better compared to yesterday. - Skin Skin exam: Present: dry, intact Internal Medicine: Result - Labs CBC & Chem 7: 05/09/16 05:08 05/11/16 05:27 Labs: BMP 05/11/16 05:27 Sodium 136 Potassium 4.6 H Chloride 106 Carbon Dioxide 20 BUN 30 H Creatinine 1.73 H Glucose 146 H Calcium 9.4 - ABG Interpretation ABG results: PT/INR, D-dimer PT 12.3 Seconds (9.4-12.1) H 05/05/16 16:50 - VTE Documentation of Mechanical Device: Graduated compression elastic hosiery Consult Discharge Plan - Plan Instructions: Aspirin (By mouth), Levofloxacin (By mouth), Atrial Fibrillation (DC), Diabetes Mellitus Type 2 in Adults (DC), Ischemic Stroke (DC), Ischemic Stroke (GEN), Chronic Hypertension (DC), Pneumonia (DC) Additional Instructions: Follow-up with PCP in one week Follow-up with Neurology in 1-2 weeks Follow-up with Cardiology in 1-2 weeks Referrals: Noah Conteh MD [Primary Care Provider] - 05/12/16 10:20 am Noah Muhammad MD [Partnered Physician] - (follow up 2 weeks) Antwan Solomon MD [Partnered Physician] - (Follow-up 1-2 weeks.) Prescriptions: Aspirin 325 mg PO DAILY #30 tablet Levofloxacin [Levaquin] 750 mg PO Q48H #5 tablet <Oscar Perez - Last Filed: 05/11/16 18:47> Date of Encounter: 05/11/16 - Constitutional Vitals: Temp Pulse Resp BP Pulse Ox 97.5 F L 85 16 138/92 96 05/11/16 15:34 05/11/16 15:34 05/11/16 15:34 05/11/16 15:34 05/11/16 15:34 Internal Medicine: Result - Labs CBC & Chem 7: 05/09/16 05:08 05/11/16 05:27 Labs: BMP 05/11/16 05:27 Sodium 136 Potassium 4.6 H Chloride 106 Carbon Dioxide 20 BUN 30 H Creatinine 1.73 H Glucose 146 H Calcium 9.4 - ABG Interpretation ABG results: PT/INR, D-dimer PT 12.3 Seconds (9.4-12.1) H 05/05/16 16:50 - Attending Attestation I examined this patient and my medical decision-making was reviewed with the SOFTWARE CLERK/PA/Advanced Practice Nurse/Resident Physician. I agree with the documented findings, disposition and treatment plan as described except to the extent set forth below.
[2016-05-11] MEDS ORDERED: Levofloxacin 750 MG/150 ML 750 MG/150 ML BAG IVPB ONE (16:00)
[2016-05-11] MEDS: *HR* Heparin 5,000 UNIT/ML VIAL SQ SCH (17:27)
[2016-05-11] MEDS: Insulin DETEMIR 100 UNIT/ML X5UNITS SQ SCH (19:55)
[2016-05-12] MEDS: *HR* Heparin 5,000 UNIT/ML VIAL SQ SCH (05:22)
[2016-05-12] MEDS: Sucralfate 1 GM TABLET PO SCH ×2 (07:51→12:40)
[2016-05-12] MEDS: Aspirin 325 MG TABLET PO SCH (07:51)
[2016-05-12] MEDS: Insulin LISPRO 300 UNITS/3 ML VIAL SQ SCH ×2 (07:52→12:39)
[2016-05-12] MEDS: Famotidine 20 MG TABLET PO SCH (07:52)
[2016-05-12] MEDS: Fluticasone Propionate Nasal 50 MCG/SPRAY BOTTLE NS SCH (07:53)
--- NOTE | 2016-05-12 10:35 | Internal Med Progress Note ---
<Rachel Lynch - Last Filed: 05/12/16 14:42> Date of Encounter: 05/12/16 Time of Encounter: 08:45 - Assessment and plan (1) CVA (cerebral vascular accident) Status: Acute Assessment and plan: - Clinically improving as patient can speak more coherently and is able to ambulate with some help - BELGICA negative and loop recorder placed on 05/06/16 - Currently on ASA, statin and will continue upon DC - PT/OT recommends ECF for rehab upon discharge. Patient is medically stable and will be discharged to rehab on 05/12/16. Please see discharge summary on for more detail. Qualifiers: CVA mechanism: embolism Precerebral and cerebral artery: unspecified cerebral artery Qualified Code(s): I63.40 - Cerebral infarction due to embolism of unspecified cerebral artery (2) Aphasia Status: Acute Assessment and plan: - Expressive aphasia, feels it's better compared to yesterday. - Speech therapy has been consulted. Appreciate assistance on patient care. (3) Pneumonia Status: Resolved Assessment and plan: - Cervical spine CT demonstrated bilateral upper lobe consolidative changes concerning for pneumonia - Has finished 6-day course of Levaquin 750mg Q48H. - Clinically stable and patient denies shortness of breath. Qualifiers: Pneumonia type: due to unspecified organism Laterality: bilateral Lung location: unspecified part of lung Qualified Code(s): J18.9 - Pneumonia, unspecified organism (4) DVT prophylaxis Status: Acute Assessment and plan: - SQ heparin. - Subjective Interval history: No significant event noted overnight. Patient was seen and examined this morning. Patient reports doing well and feels her speech is getting better. Patient denies vision change, hearing change, numbness/tingling, focal weakness , fever, chills, chest pain, dypsnea. - Constitutional Vitals: Temp Pulse Resp BP Pulse Ox 97.5 F L 88 16 139/88 94 L 05/12/16 07:11 05/12/16 07:11 05/12/16 07:11 05/12/16 07:11 05/12/16 07:11 General appearance: Present: cooperative, A&O X 3, pleasant, no acute distress, obese - Head Head exam: Present: atraumatic, normocephalic - Eye Eye exam: Present: PERRL, conjuntiva pink, sclera anicteric Pupils: Present: PERRL - Neck Neck exam general surgery: Present: supple, trachea midline. Absent: lymphadenopathy - Respiratory Respiratory exam: Present: CTAB. Absent: accessory muscle use, rales, rhonchi, wheezes - Cardiovascular Cardiovascular exam: Present: RRR, +S1, +S2. Absent: diastolic murmur, gallop, rubs, systolic murmur - GI/Abdominal GI/Abdominal exam: Present: normal bowel sounds, soft, no peritoneal signs. Absent: distended, tenderness - Extremities Exam Extremities exam: Present: warm, radial pulses palpable and symetrical. Absent : calf tenderness, cyanotic, pedal edema - Neurological Exam Neurological exam: Present: CN II-XII intact, oriented X3. Absent: pronater drift, facial droop, speech deficit Additional comments: Expressive aphasia, better compared to yesterday. - Skin Skin exam: Present: dry, intact, warm Internal Medicine: Result - Labs CBC & Chem 7: 05/09/16 05:08 05/11/16 05:27 - ABG Interpretation ABG results: PT/INR, D-dimer PT 12.3 Seconds (9.4-12.1) H 05/05/16 16:50 - VTE Documentation of Mechanical Device: Graduated compression elastic hosiery Consult Discharge Plan - Plan Instructions: Aspirin (By mouth), Levofloxacin (By mouth), Atrial Fibrillation (DC), Diabetes Mellitus Type 2 in Adults (DC), Ischemic Stroke (DC), Ischemic Stroke (GEN), Chronic Hypertension (DC), Pneumonia (DC) Additional Instructions: Follow-up with PCP in one week Follow-up with Neurology in 1-2 weeks Follow-up with Cardiology in 1-2 weeks Referrals: Noah Muhammad MD [Partnered Physician] - 06/01/16 2:00 pm (follow up 2 weeks) Antwan Solomon MD [Partnered Physician] - 05/19/16 10:00 am (Follow-up 1-2 weeks.) Prescriptions: Aspirin 325 mg PO DAILY #30 tablet Levofloxacin [Levaquin] 750 mg PO Q48H #5 tablet <Oscar Perez P - Last Filed: 05/12/16 18:20> Date of Encounter: 05/12/16 - Constitutional Vitals: Temp Pulse Resp BP Pulse Ox 97.5 F L 93 18 133/91 90 L 05/12/16 11:39 05/12/16 11:39 05/12/16 11:39 05/12/16 11:39 05/12/16 11:39 Internal Medicine: Result - Labs CBC & Chem 7: 05/09/16 05:08 05/11/16 05:27 - ABG Interpretation ABG results: PT/INR, D-dimer PT 12.3 Seconds (9.4-12.1) H 05/05/16 16:50 - Attending Attestation I examined this patient and my medical decision-making was reviewed with the SPAR FINISHER/PA/Advanced Practice Nurse/Resident Physician. I agree with the documented findings, disposition and treatment plan as described except to the extent set forth below.
[2016-05-12 11:43] VITALS: BP 133/91
== END 2016-05-12 15:32 | DRG 40 ==
LOC: 2NENU 10:23 → EMEROO 10:23 → 2NENU 12:57
PROVIDERS: ADMIT Internal Medicine; ATTEND Internal Medicine